=== PATIENT | male | born 1955 | race Caucasian/White ===

== ENCOUNTER → 2018-07-06 13:00 | Outpatient (CLI) | payer OTHER, SELFPAY | PROVIDERS: PCP Family Medicine | DX: Z23 Encounter for immunization (principal) | CPT/HCPCS: 90471; 90686 ==

== ENCOUNTER → 2019-01-03 12:13 | Outpatient (CLI) | payer OTHER, SELFPAY ==
[2019-01-03 12:51] LABS: Influenza A and B by PCR Rapid Negative (Negative)
== END ==
PROVIDERS: PCP Family Medicine; Visit Provider Physician Assistant
DX: R68.89 Other general symptoms and signs (principal)
CPT/HCPCS: 87400

== ENCOUNTER → 2019-08-02 10:52 | Outpatient (CLI) | payer OTHER, SELFPAY ==
[2019-08-02 12:11] LABS: Vitamin D 25 Hydroxy (D3) 24.3 ng/mL (30.0-100.0)
[2019-08-02 12:25] LABS: Prostate Specific Antigen Scrn 1.18 ng/mL (0.1-4.0)
== END ==
PROVIDERS: PCP Student in an Organized Health Care Education/Training Program; Visit Provider Student in an Organized Health Care Education/Training Program
DX: Z12.5 Encounter for screening for malignant neoplasm of prostate (principal); E55.9 Vitamin D deficiency, unspecified
CPT/HCPCS: 36415; 82306; G0103

== ENCOUNTER → 2019-08-02 13:42 | Outpatient (CLI) | payer OTHER, SELFPAY | PROVIDERS: PCP Student in an Organized Health Care Education/Training Program | DX: Z23 Encounter for immunization (principal) | CPT/HCPCS: 90471; 90686 ==

== ENCOUNTER 2019-09-02 07:24 | Day surgery (SDC) | payer OTHER, SELFPAY ==
--- NOTE | 2019-09-02 | PATH_ITS ---
[facility] Accession Number: [id number] . 01 Material submitted: . rectum - RECTAL POLYP @10 CM . 01 Clinical history: . SCREENING COLONOSCOPY . 02 Diagnosis: Rectum, Polyp at 10 cm, Biopsy: Tubular adenoma. MRV 09/05/2019 0951 Local . 02 Electronically signed: . Bambi Mendosa MD, Pathologist NPI- [id number] . 01 Gross description: . RECTAL POLYP @10 CM: Received in formalin are 2 fragment(s) of eng, soft tissue measuring 0.2 x 0.1 x 0.1 cm to 0.3 x 0.3 x 0.2 cm submitted entirely in 1 cassette(s) /[facility] [place] 09/02/2019 191 Local . 02 Pathologist provided ICD-10: D12.8 . 02 CPT . 085147 Performed at: 01 [facility] [address] [facility], [place], [place] [id number] MD Avi Chamorro MD Phone: [phone] Performed at: [facility] [address] [place], [place] [id number] MD Bambi Mendosa MD Phone: [phone]
[2019-09-02 07:46] VITALS: BP 130/80; PULSE 76; RESP 16; TEMP 36.7; O2SAT 98; BMI 23.6
[2019-09-02] MEDS: SODIUM CHLORIDE 0.9% 1,000 ML 200 ML IV (07:53)
[2019-09-02] MEDS: SODIUM CHLORIDE 0.9% 1,000 ML 125 ML IV ×2 (08:30→09:25)
--- NOTE | 2019-09-02 08:55 | PM.HP.1 ---
History of Present Illness History of Present Illness Date Patient Seen: 09/02/19 Time Patient Seen: 08:55 Chief complaint: 15089 SCREENING COLONOSCOPY Narrative: This is a 64-year-old man with history of a normal screening colonoscopy 10 years ago. He is here for his next follow-up screening. He denies any personal history of polyps, or melena, hematochezia, abdominal pain, or unexplained weight loss. He believes his mother who is now 100 may have had colon cancer at some point in her life that he is not sure of the details of that. He is otherwise healthy and denies any significant medical changes since his last primary care visit in February. Patient History Medical History Actinic keratosis (Chronic ~2011) Chicken pox (Resolved ~1959) Hyperlipidemia (Chronic ~2007) Skin cancer (Chronic ~2013) Surgical History Anesthesia (Resolved) History of tonsillectomy (~1964) Status post appendectomy (~1977) Family & Social History Family History Brother Age: 69 Heart disease Stroke Mother Age: 99 Cancer Heart disease Sister Age: 76 Heart disease Sister Age: 75 COPD (chronic obstructive pulmonary disease) Father Heart disease Stroke Social History: household members none Tobacco & Substance use: Smoking Status Never smoker Meds Home Medications and Allergies Home Medications Medication Instructions Recorded Confirmed Type ASPIRIN (Aspirin EC) 81 mg PO Q DAY #0 02/26/11 09/02/19 History atorvastatin 40 mg tablet 40 mg PO HS #90 tab 02/17/19 09/02/19 Rx sodium,potassium,mag sulfates 17.5 177 ml PO DAILY #354 ml 08/17/19 09/02/19 Rx gram-3.13 gram-1.6 gram oral soln Allergies Allergy/AdvReac Type Severity Reaction Status Date / Time Sulfa (Sulfonamide Allergy Unknown Verified 02/17/19 12:59 Antibiotics) [SULFA (SULFONAMIDE ANTIBIOTICS)] Review of Systems Review of Systems Narrative: Thirteen system review is negative other than as mentioned below and in HPI. Exam Vital Signs (past 8 hours): - 09/02/19 07:46 Temperature 98.1 F Pulse Rate 76 Respiratory Rate 16 Blood Pressure 130/80 Pulse Oximetry 98 Oxygen Delivery Method Room Air Narrative Exam Narrative: GENERAL: Well groomed and cooperative. Appears stated age. Answers questions promptly and appropriately. Vital signs noted. HENT: Normocephalic, atraumatic. Hearing intact. Oral mucosa is pink and moist. EYES: Conjunctiva pink, sclera white, no periorbital swelling. CARDIOVASCULAR: Regular rate. No pedal edema. RESPIRATORY: Normal respiratory rate, breathing comfortably on room air. GASTROINTESTINAL: Abdomen soft and non-distended GENITALURINARY: No flank tenderness. MUSCULOSKELETAL: Equal tone and mass bilaterally. SKIN: Warm, dry, soft, appropriate color for ethnicity. No other lesions, rashes, or wounds. NEURO: Alert and Oriented X 3. No gross sensory deficits, or cognitive issues. PSYCH: Appropriate affect and mood. Assessment & Plan Assessment and plan (1) At average risk for colon cancer: Current visit: Yes Status: Acute (2) Colon cancer screening: Current visit: Yes Status: Acute Assessment & Plan narrative: This is a 64-year-old man who is here for his screening colonoscopy. Risks and benefits of the procedure were discussed including risk of bleeding and perforation. The patient desires to proceed with his colonoscopy. Quality VTE Deep Vein Thrombosis/Pulmonary Embolism Present on Admission: No
--- NOTE | 2019-09-02 09:34 | PM.OP.ENDO ---
Operative Date/Time/Diagnoses Date of procedure: 09/02/19 Time of procedure: 09:34 Pre-op diagnosis: Average risk for colon cancer Post-op diagnosis: other (Colon polyp, diverticulosis, external hemorrhoids) Procedure & Clinicians Study performed: Colonoscopy, polypectomy with hot snare and cold forceps Same procedure as scheduled: Yes Indications: Average risk for colon cancer Surgeon: Magalis Pablo Procedure Notes SCOAP/Timeout: Performed Procedure in detail: The patient was brought to the room and placed in left lateral decubitus position with all bony prominences padded. A time-out was performed and then the patient was given procedural sedation starting with 5 mg of Versed and 150 mcg of fentanyl. Vitals were monitored throughout the procedure and remained stable. Once adequately sedated the procedure was begun. A rectal exam was performed revealing moderate non thrombosed external hemorrhoids, which appear to be tender, although the patient was under sedation. The colonoscope was then introduced to the rectum and advanced to the cecum in the usual fashion. []The cecum was identified by the appendiceal orifice, the mucosal try fold, and the ileocecal valve. The scope was then retracted while rotating side to side and examining each mucosal fold. [A few scattered diverticula were seen in the descending and sigmoid colon. No sign of diverticulitis. A moderately-sized 1 cm pedunculated polyp was found in the rectum about 10 cm from the anal verge. This was entirely removed with hot snare and forceps.] At the conclusion procedure retroflexion was performed and [small grade 1-2 internal hemorrhoids without stigmata of bleeding were seen]. The scope was then withdrawn from the rectum the procedure was concluded. The patient tolerated the procedure well was transferred to the PACU in stable condition. Scope withdrawal time: 9 Sedation minutes: 32 Findings: diverticulosis and polyp Specimen(s): other (1 cm polyp from the rectum) Complications: none Impression: Diverticulosis, external hemorrhoids, 1 polyp in the rectum Post-procedure Recommendations: Other recommendation (Next colonoscopy in 5-10 years depending on pathology results) Follow up: as needed Disposition: PACU
[2019-09-02] MEDS: fentaNYL 250 MCG/5 ML INJ IV (09:36)
[2019-09-02] MEDS: MIDAZOLAM 5 MG/5 ML VIAL IV (09:36)
[2019-09-02 09:37] VITALS: BP 109/77; PULSE 64; RESP 21; TEMP 36.2; O2SAT 98
[2019-09-02 09:41] VITALS: BP 105/75; PULSE 63; RESP 14; O2SAT 98
[2019-09-02 09:46] VITALS: BP 104/71; PULSE 57; RESP 14; O2SAT 98
[2019-09-02 09:57] VITALS: BP 100/67; PULSE 56; RESP 98; O2SAT 13
[2019-09-02 10:14] VITALS: BP 115/75; PULSE 61; RESP 16; TEMP 36.5; O2SAT 99
--- NOTE | 2019-09-02 10:15 | SUR.PHASEII ---
reviewed procedure and D/C instructions with pt. Christopher notified, pt independently dressing. Escorted to vehicle
== END 2019-09-02 10:20 | disposition home or self-care (01) ==
PROVIDERS: PCP Student in an Organized Health Care Education/Training Program; Visit Provider Surgery
PROC: 0DJD8ZZ Inspection of Lower Intestinal Tract, Via Natural or Artificial Opening Endoscopic (ICD-10-PCS; CPT 45378; principal; 2019-09-02 08:45)
DX: Z12.11 Encounter for screening for malignant neoplasm of colon (principal); E78.5 Hyperlipidemia, unspecified; K57.30 Diverticulosis of large intestine without perforation or abscess without bleeding; K64.4 Residual hemorrhoidal skin tags; D12.8 Benign neoplasm of rectum
CPT/HCPCS: 45385; 45380; 99152; 99153; J2250; J3010

== ENCOUNTER → 2020-04-25 08:48 | Outpatient (CLI) | payer OTHER, SELFPAY ==
[2020-04-26 08:53] LABS: COVID19 Sendout Not Detected (Not Detect)
== END ==
PROVIDERS: PCP Student in an Organized Health Care Education/Training Program; Visit Provider Physician Assistant
DX: Z03.818 Encounter for observation for suspected exposure to other biological agents ruled out (principal)
CPT/HCPCS: 87635

== ENCOUNTER → 2020-06-19 09:42 | Outpatient (CLI) | payer OTHER, SELFPAY ==
--- NOTE | 2020-06-19 09:44 | DI.US.S_ITS ---
PROCEDURE: US ABD AORTA ANEURYSM SCREEN INDICATIONS: PULSATILE MASS TECHNIQUE: Real time scanning was performed of the aorta and iliac arteries, with image documentation. COMPARISON: None. FINDINGS: Aorta: Proximal aortic diameter measures 2.6 cm. Mid-aorta measures 2.0 cm. Distal aortic diameter is 2.0 cm. Iliac arteries: Right common iliac artery measures 1.3 cm. Left common iliac artery measures 1.3 cm. Incidental finding of simple left hepatic lobe cysts, largest measuring 3.5 cm. IMPRESSION: 1. Mild ectasia of the proximal aorta. 5 year follow-up ultrasound recommended. Dictated by: Roger RAMIREZ Interpreted: Viola Herrera MD on 06/19/2020 at 10:20 Approved by: Viola Herrera M.D. on 06/19/2020 at 15:00
== END ==
PROVIDERS: PCP Student in an Organized Health Care Education/Training Program; Referring Provider Student in an Organized Health Care Education/Training Program; Visit Provider Student in an Organized Health Care Education/Training Program
DX: I77.810 Thoracic aortic ectasia (principal); K76.89 Other specified diseases of liver; R19.00 Intra-abdominal and pelvic swelling, mass and lump, unspecified site
CPT/HCPCS: 76706

== ENCOUNTER → 2020-08-02 01:00 | Outpatient (CLI) | payer OTHER, SELFPAY | PROVIDERS: PCP Student in an Organized Health Care Education/Training Program; Referring Provider Internal Medicine; Visit Provider Internal Medicine | DX: Z23 Encounter for immunization (principal) | CPT/HCPCS: 90471; 90686 ==

== ENCOUNTER → 2020-10-24 16:46 | Outpatient (CLI) | payer OTHER, SELFPAY ==
[2020-10-24] MEDS: COVID-19 VACC(MODERNA-1)/PF 100 MCG/0.5 ML VIAL IM (17:06)
== END ==
PROVIDERS: PCP Student in an Organized Health Care Education/Training Program; Visit Provider Internal Medicine
DX: Z23 Encounter for immunization (principal)
CPT/HCPCS: 0011A; 91301

== ENCOUNTER → 2020-11-21 08:24 | Outpatient (CLI) | payer OTHER, SELFPAY ==
[2020-11-21] MEDS: COVID-19 VACC #2, MRNA(MOD) 100 MCG/0.5 ML VIAL IM (08:28)
== END ==
PROVIDERS: PCP Student in an Organized Health Care Education/Training Program; Visit Provider Internal Medicine
DX: Z23 Encounter for immunization (principal)
CPT/HCPCS: 0012A; 91301

== ENCOUNTER → 2021-03-15 07:16 | Outpatient (CLI) | payer OTHER, SELFPAY ==
[2021-03-15 08:37] LABS: Prostate Specific Antigen Scrn 0.916 ng/mL (0.1-4.0)
== END ==
PROVIDERS: PCP Student in an Organized Health Care Education/Training Program; Referring Provider Student in an Organized Health Care Education/Training Program; Visit Provider Student in an Organized Health Care Education/Training Program
DX: Z12.5 Encounter for screening for malignant neoplasm of prostate (principal)
CPT/HCPCS: 36415; G0103

== ENCOUNTER → 2021-08-01 | Outpatient (CLI) | payer OTHER, SELFPAY | PROVIDERS: PCP Student in an Organized Health Care Education/Training Program; Referring Provider Internal Medicine; Visit Provider Internal Medicine | DX: Z23 Encounter for immunization (principal) | CPT/HCPCS: 90471; 90686 ==

== ENCOUNTER → 2021-08-30 13:11 | Outpatient (CLI) | payer OTHER, SELFPAY ==
[2021-08-30] MEDS: COVID-19 VACC #3, MRNA(MOD) 50 MCG/0.25 ML VIAL IM (13:17)
== END ==
PROVIDERS: PCP Student in an Organized Health Care Education/Training Program; Visit Provider Internal Medicine
DX: Z23 Encounter for immunization (principal)
CPT/HCPCS: 0013A; 91301

== ENCOUNTER → 2022-05-12 07:42 | Outpatient (CLI) | payer OTHER, SELFPAY ==
[2022-05-12 08:24] LABS: Cholesterol 157 mg/dL (140-199); HDL Cholesterol 54 mg/dL (40-60); LDL Cholesterol Calculated 97 mg/dL (<100); Triglycerides 32 mg/dL (35-150)
[2022-05-12 08:31] LABS: Vitamin D 25 Hydroxy (D3) 46.5 ng/mL (30.0-100.0)
[2022-05-12 08:55] LABS: Prostate Specific Antigen Scrn 1.09 ng/mL (0.1-4.0)
== END ==
PROVIDERS: PCP Student in an Organized Health Care Education/Training Program; Referring Provider Student in an Organized Health Care Education/Training Program; Visit Provider Student in an Organized Health Care Education/Training Program
DX: Z12.5 Encounter for screening for malignant neoplasm of prostate (principal); E78.2 Mixed hyperlipidemia; E55.9 Vitamin D deficiency, unspecified
CPT/HCPCS: 36415; 80061; 82306; G0103

== ENCOUNTER → 2022-08-08 16:47 | Outpatient (CLI) | payer OTHER, SELFPAY | PROVIDERS: Family Provider Student in an Organized Health Care Education/Training Program; PCP Student in an Organized Health Care Education/Training Program; Referring Provider Internal Medicine; Visit Provider Internal Medicine | DX: Z23 Encounter for immunization (principal) | CPT/HCPCS: 90471; 90686 ==

== ENCOUNTER 2022-11-12 16:00 | Outpatient (RCR) | payer OTHER, SELFPAY ==
--- NOTE | 2022-08-27 13:40 | PT.OIE ---
Current Diagnoses Abnormal posture (08/27/22) Weakness (08/27/22) Strain of unspecified muscles, fascia and tendons at forearm level, right arm, initial encounter (08/27/22) Past Medical History (Last Updated 04/19/22 @ 15:12 by Ubaldo Cuevas MD) Actinic keratosis (~2011) Basal cell carcinoma (BCC) of face (07/20/15) Chicken pox (~1960) Hyperlipidemia (~2007) Past Surgical History (Last Reviewed 09/02/19 @ 08:56 by Magalis Pablo MD) Anesthesia History of tonsillectomy (~1964) Status post appendectomy (~1977) Visit Care Team Role Provider Type Ubaldo Cuevas MD Attending Provider Physician Family Provider Primary Care Provider Referring Provider Specialty: Internal Medicine Address: [address] [place] [address], [address], [facility] Email: [email or web address] Physical Therapy Initial Evaluation PT-OP-A Visit Information Start: 08/26/22 15:05 Freq: Status: Active Protocol: Document 08/27/22 11:18 [facility] (Rec: 08/27/22 12:10 [facility] [id number]) Out-Patient Physical Therapy Visit Information Visit Information Visit Type Initial Evaluation Visit Start Time 11:17 Visit Stop Time 12:06 Total Visit Minutes 49 Visit Number [address] 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 He could feel it during, but powered through it. This happened in march but it hasn't gotten better. He still works out still but just feels it. He moved some furniture a couplew pit river ago and he isn't sure if it was weak or he held back d/t the pain. Pt is R hand dominant. Denies neck or shoulder pain. For work, he on the computer,b ut he doesn't notice that inc it. Golfing didn't bother it. Prior Treatments and Tests none Treatment Goals Patient/Caregiver Goals prevent further damage; be able to pick remover heavy things like his vacuum PT-OP-C Subjective Start: 08/26/22 15:05 Freq: Status: Active Protocol: Document 08/27/22 11:18 [facility] (Rec: 08/27/22 12:10 [facility] [id number]) Patient Questionnaires Quick Dash- Upper Extremity Quick Dash UE Score 2.27 OP-PT Pain Assessment Location R forearm Pain Location Details lat forearm and occ up into distal brachium Intensity 4 Scale Used Numeric (0 - 10) Description With Movement Description- Other sometimes aches for min after doing things; sharp whend oing things Frequency Intermittent Pain Aggravating Factors Lifting Other Pain Aggravating Factors grabbing his leg to stretch Other Pain Alleviating Factors relax PT-OP-F Manual Assessment Start: 08/26/22 15:05 Freq: Status: Active Protocol: Document 08/27/22 11:18 [facility] (Rec: 08/27/22 12:10 [facility] [id number]) Manual Assessments Soft Tissue Assessment Soft Tissue Mobility Assessment tightness in extensor tendsons and biceps PT-OP-J Posture/Palpation/Skin Start: 08/26/22 15:05 Freq: Status: Active Protocol: Document 08/27/22 11:18 [facility] (Rec: 08/27/22 12:10 [facility] [id number]) Posture Evaluation Beba Postural Classification System Elbow Flexion Test 3 PT-OP-K Range of Motion Start: 08/26/22 15:05 Freq: Status: Active Protocol: Document 08/27/22 11:18 [facility] (Rec: 08/27/22 12:10 [facility] [id number]) Elbow/Forearm Range of Motion Elbow/Forearm Right Active Elbow Flexion (degrees) 149 Elbow Extension (degrees) 8 Pronation (degrees) 63 Supination (degrees) 84 Comments pain w/flex Left Active Elbow Flexion (degrees) 150 Elbow Extension (degrees) 0 Pronation (degrees) 69 Supination (degrees) 85 Wrist Goniometric Range of Motion Wrist Right Flexion Active (degrees) 80 Extension Active (degrees) 58 Ulnar Deviation Active (degrees) 40 Radial Deviation Active (degrees) 20 Left Flexion Active (degrees) 81 Extension Active (degrees) 45 Ulnar Deviation Passive (degrees) 36 Radial Deviation Active (degrees) 28 PT-OP-L Special Tests Start: 08/26/22 15:05 Freq: Status: Active Protocol: Document 08/27/22 11:18 [facility] (Rec: 08/27/22 12:10 [facility] [id number]) Special Tests Elbow Special Tests Mill's test Test Results neg Neural Special Tests- Upper Body Radial Nerve Tension Test Results neg Ulnar Nerve Tension Test Results neg Median Nerve Tension Test Results neg PT-OP-M Strength Start: 08/26/22 15:05 Freq: Status: Active Protocol: Document 08/27/22 11:18 [facility] (Rec: 08/27/22 12:10 [facility] [id number]) Shoulder Strength Shoulder Manual Muscle Testing Right Flexion 5 Normal Extension 5 Normal Abduction (C5) 5 Normal External Rotation 5 Normal Internal Rotation 5 Normal Comments pain w/IR Elbow/Forearm Strength Elbow and Forearm Manual Muscle Testing Right Flexion (C6) 4+ Good+ Extension (C7) 5 Normal Pronation 5 Normal Supination 4- Good- Comments flex in pronation: 4-/5 pain; pain w/supination Left Flexion (C6) 5 Normal Extension (C7) 5 Normal Pronation 5 Normal Supination 5 Normal Comments flex in pronation:5 Wrist Strength Wrist Manual Muscle Testing Right Flexion (C7) 4 Good Extension (C6) 4+ Good+ Ulnar Deviation 5 Normal Radial Deviation 4 Good Comments radial deviation & flex strain Left Flexion (C7) 5 Normal Extension (C6) 5 Normal Ulnar Deviation 5 Normal Radial Deviation 5 Normal Hand Break Off Worker/Pinch Strength Hand Dominance Hand Dominance Right Hand Strength Right Comments 85, 88, 87 lb Left Comments 98, 100, 101 lb PT-OP-Q Treatments Start: 08/26/22 15:05 Freq: Status: Active Protocol: Document 08/27/22 11:18 [facility] (Rec: 08/27/22 13:40 [facility] [id number]) Therapeutic Exercises Sitting Exercises radial deviation Side right Equipment Used 2# Reps/Minutes 10 wrist flex Side right Equipment Used 2# Reps/Minutes 10 stretches Sitting Exercise Name 1. wrist flexor 2. wrist extensor Side right Reps/Minutes 30 sec ea Standing Exercises brachialis curl Side right Equipment Used 5# Reps/Minutes 10 Manual Therapy Treatment Soft Tissue Mobilization biceps Body Location R distal Mobilization Type Rolling Intensity/Depth Moderate Body Position Sitting extensors Body Location R wrist Mobilization Type Cross-Friction,Rolling, Strumming Intensity/Depth Moderate Body Position Sitting PT-OP-T Assessment and Plan Start: 08/26/22 15:05 Freq: Status: Active Protocol: Document 08/27/22 11:18 [facility] (Rec: 08/27/22 12:10 [facility] [id number]) Physical Therapy Assessment Rehab Potential Rehabilitation Potential Good Evaluation Complexity Number of Personal Factors/Comorbidities 1-2 Number of Body Systems Impaired 4 or More Clinical Presentation at Evaluation Stable Impairments Impairments Activity Tolerance,Functional Activities,Functional Mobility ,Pain,Posture,ROM,Soft Tissue Mobility,Strength Goals licensed sales producer strength Polishing Machine Tender Goal (LTG) Pt will have equal licensed sales producer strength in RUE when compared to LUE. LTG Duration 11/19 activities Polishing Machine Tender Goal (LTG) Pt will be able to pick remover heavy objects like his vacuum w/RUE w/o inc pain noted. LTG Duration 11/19/22 strength Short Term Goal (STG) Pt will be indep w/HEP STG Duration 10/07/22 Intermediate Goal (LTG) Ptw ill score 4/5 on EFT and 5 /5 on all MMT of elbow and wrist to show improved UE strength to improve ability to lift and use UE. LTG Duration 11/19 Assessment Summary Assessment Pt presents with L elbow/ forearm pain that has been ongoing since weed-eating in March that appears to be lateral epicondylitis based on where he is tender and some lack of pronation and ext at the elbow along w/weakness in licensed sales producer and pain w/radial deviation. He does a general strengthing program that does not inc his pain and some exercises were added today to focus on his current weakness. He had no pain with exercises and would benefit from PT tow rok on regaining ROM and strength and dec pain. Physical Therapy Plan Frequency and Duration Frequency of Treatment 1-2x/wk Duration of treatment (weeks) 12 Plan of Care Start Date 08/27/22 Plan of Care End Date 11/19/22 Therapeutic Interventions Therapeutic Interventions Home Exercise Program,Joint Mobilizations,Manual Therapy, Neuromuscular Re-education, Orthotic/Prosthetic Management ,Patient/Caregiver Education, Self-Care/Home Management,Soft Tissue Mobilization,Taping, Therapeutic Activities, Therapeutic Exercises Modalities Cold Pack/Ice Massage,Electric Stimulation,Hot Packs, Infrared Therapy,Iontophoresis ,Ultrasound Next Visit Focus/Plan Next Note Type Treatment Note Next Visit Plan laser, ionto (if POC signed back), review exercsies
--- NOTE | 2022-08-27 13:40 | PT.OPPOC ---
Physical, Occupational & Speech Therapy At [facility] Current Diagnoses Abnormal posture (08/27/22) Weakness (08/27/22) Strain of unspecified muscles, fascia and tendons at forearm level, right arm, initial encounter (08/27/22) Visit Care Team Role Provider Type Ubaldo Cuevas MD Attending Provider Physician Family Provider Primary Care Provider Referring Provider Specialty: Internal Medicine Address: [address] [place] [address], [facility] [address], [address] Email: [email or web address] Plan Of Care PT-OP-T Assessment and Plan Start: 08/26/22 15:05 Freq: Status: Active Protocol: Document 08/27/22 11:18 [facility] (Rec: 08/27/22 12:10 [facility] [id number]) Physical Therapy Assessment Rehab Potential Rehabilitation Potential Good Evaluation Complexity Number of Personal Factors/Comorbidities 1-2 Number of Body Systems Impaired 4 or More Clinical Presentation at Evaluation Stable Impairments Impairments Activity Tolerance,Functional Activities,Functional Mobility ,Pain,Posture,ROM,Soft Tissue Mobility,Strength Goals acupuncturist strength Pump And Still Operator Goal (LTG) Pt will have equal acupuncturist strength in RUE when compared to LUE. LTG Duration 11/19 activities Pump And Still Operator Goal (LTG) Pt will be able to pick up driver heavy objects like his vacuum w/RUE w/o inc pain noted. LTG Duration 11/19/22 strength Short Term Goal (STG) Pt will be indep w/HEP STG Duration 10/07/22 Half-Way Goal (LTG) Ptw ill score 4/5 on EFT and 5 /5 on all MMT of elbow and wrist to show improved UE strength to improve ability to lift and use UE. LTG Duration 11/19 Assessment Summary Assessment Pt presents with L elbow/ forearm pain that has been ongoing since weed-eating in March that appears to be lateral epicondylitis based on where he is tender and some lack of pronation and ext at the elbow along w/weakness in acupuncturist and pain w/radial deviation. He does a general strengthing program that does not inc his pain and some exercises were added today to focus on his current weakness. He had no pain with exercises and would benefit from PT tow rok on regaining ROM and strength and dec pain. Physical Therapy Plan Frequency and Duration Frequency of Treatment 1-2x/wk Duration of treatment (weeks) 12 Plan of Care Start Date 08/27/22 Plan of Care End Date 11/19/22 Therapeutic Interventions Therapeutic Interventions Home Exercise Program,Joint Mobilizations,Manual Therapy, Neuromuscular Re-education, Orthotic/Prosthetic Management ,Patient/Caregiver Education, Self-Care/Home Management,Soft Tissue Mobilization,Taping, Therapeutic Activities, Therapeutic Exercises Modalities Cold Pack/Ice Massage,Electric Stimulation,Hot Packs, Infrared Therapy,Iontophoresis ,Ultrasound Next Visit Focus/Plan Next Note Type Treatment Note Next Visit Plan laser, ionto (if POC signed back), review exercsies Plan of Care Dates Plan of Care Start Date 08/27/22 Plan of Care End Date 11/19/22 Electronically Signed by: Beth Agustin, PT 08/27/22 9020 If you are in agreement with this Plan of Care, please return a signed and dated copy. I have reviewed this Plan of Care and certify that the skilled therapy services above are required to meet the patient?s needs. Physician Signature Date Printed Name and Credentials Clinical Instructor Signature Printed Name and Credentials
--- NOTE | 2022-09-04 17:01 | PT.OTN ---
Current Diagnoses Abnormal posture (09/04/22) Weakness (09/04/22) Strain of unspecified muscles, fascia and tendons at forearm level, right arm, initial encounter (09/04/22) Physical Therapy Treatment Note PT-OP-A Visit Information Start: 08/26/22 15:05 Freq: Status: Active Protocol: Document 09/04/22 15:31 [facility] (Rec: 09/04/22 17:01 [facility] [id number]) Out-Patient Physical Therapy Visit Information Visit Information Visit Type Treatment Note Visit Start Time 16:06 Visit Stop Time 16:48 Total Visit Minutes 42 Visit Number 2 Number of BRIDGE OPERATOR Visits 0 PT-OP-B Current Condition Start: 08/26/22 15:05 Freq: Status: Active Protocol: Document 08/27/22 11:18 [facility] (Rec: 08/27/22 12:10 [facility] [id number]) Current Condition History of Current Condition Onset Date March Current Complaints R elbow to forearm and into brachium History of Current Condition Pt was weed eating with his new battery operated one that doesn't have a strap and he powered through it and did about 3 hours of work. He could feel it during, but powered through it. This happened in march but it hasn't gotten better. He still works out still but just feels it. He moved some furniture a couplew [place] ago and he isn't sure if it was weak or he held back d/t the pain. Pt is R hand dominant. Denies neck or shoulder pain. For work, he on the computer,b ut he doesn't notice that inc it. Golfing didn't bother it. Prior Treatments and Tests none Treatment Goals Patient/Caregiver Goals prevent further damage; be able to roller picker heavy things like his vacuum PT-OP-C Subjective Start: 08/26/22 15:05 Freq: Status: Active Protocol: Document 09/04/22 15:31 [facility] (Rec: 09/04/22 17:01 [facility] [id number]) OP-PT Subjective Patient Comments Patient Comments Pt reports compliance w/ exercises. He has been using 5 Lbs PT-OP-F Manual Assessment Start: 08/26/22 15:05 Freq: Status: Active Protocol: Document 08/27/22 11:18 [facility] (Rec: 08/27/22 12:10 [facility] [id number]) Manual Assessments Soft Tissue Assessment Soft Tissue Mobility Assessment tightness in extensor tendsons and biceps PT-OP-J Posture/Palpation/Skin Start: 08/26/22 15:05 Freq: Status: Active Protocol: Document 08/27/22 11:18 [facility] (Rec: 08/27/22 12:10 [facility] [id number]) Posture Evaluation [facility] Postural Classification System Elbow Flexion Test 3 PT-OP-K Range of Motion Start: 08/26/22 15:05 Freq: Status: Active Protocol: Document 08/27/22 11:18 [facility] (Rec: 08/27/22 12:10 [facility] [id number]) Elbow/Forearm Range of Motion Elbow/Forearm Right Active Elbow Flexion (degrees) 149 Elbow Extension (degrees) 8 Pronation (degrees) 63 Supination (degrees) 84 Comments pain w/flex Left Active Elbow Flexion (degrees) 150 Elbow Extension (degrees) 0 Pronation (degrees) 69 Supination (degrees) 85 Wrist Goniometric Range of Motion Wrist Right Flexion Active (degrees) 80 Extension Active (degrees) 58 Ulnar Deviation Active (degrees) 40 Radial Deviation Active (degrees) 20 Left Flexion Active (degrees) 81 Extension Active (degrees) 45 Ulnar Deviation Passive (degrees) 36 Radial Deviation Active (degrees) 28 PT-OP-L Special Tests Start: 08/26/22 15:05 Freq: Status: Active Protocol: Document 08/27/22 11:18 [facility] (Rec: 08/27/22 12:10 [facility] [id number]) Special Tests Elbow Special Tests Mill's test Test Results neg Neural Special Tests- Upper Body Radial Nerve Tension Test Results neg Ulnar Nerve Tension Test Results neg Median Nerve Tension Test Results neg PT-OP-M Strength Start: 08/26/22 15:05 Freq: Status: Active Protocol: Document 08/27/22 11:18 [facility] (Rec: 08/27/22 12:10 [facility] [id number]) Shoulder Strength Shoulder Manual Muscle Testing Right Flexion 5 Normal Extension 5 Normal Abduction (C5) 5 Normal External Rotation 5 Normal Internal Rotation 5 Normal Comments pain w/IR Elbow/Forearm Strength Elbow and Forearm Manual Muscle Testing Right Flexion (C6) 4+ Good+ Extension (C7) 5 Normal Pronation 5 Normal Supination 4- Good- Comments flex in pronation: 4-/5 pain; pain w/supination Left Flexion (C6) 5 Normal Extension (C7) 5 Normal Pronation 5 Normal Supination 5 Normal Comments flex in pronation:5 Wrist Strength Wrist Manual Muscle Testing Right Flexion (C7) 4 Good Extension (C6) 4+ Good+ Ulnar Deviation 5 Normal Radial Deviation 4 Good Comments radial deviation & flex strain Left Flexion (C7) 5 Normal Extension (C6) 5 Normal Ulnar Deviation 5 Normal Radial Deviation 5 Normal Hand Head Butler/Pinch Strength Hand Dominance Hand Dominance Right Hand Strength Right Comments 85, 88, 87 lb Left Comments 98, 100, 101 lb PT-OP-Q Treatments Start: 08/26/22 15:05 Freq: Status: Active Protocol: Document 09/04/22 15:31 [facility] (Rec: 09/04/22 17:01 [facility] [id number]) Therapeutic Exercises Sitting Exercises wrist ext Side right Equipment Used 5# Reps/Minutes 10 radial deviation Side right Equipment Used 5# Reps/Minutes 10 wrist flex Side right Equipment Used 5# Reps/Minutes 10 stretches Sitting Exercise Name 1. wrist flexor 2. wrist extensor Side right Reps/Minutes 30 sec ea Standing Exercises brachialis curl Side right Equipment Used 10# Reps/Minutes 10 Manual Therapy Treatment Soft Tissue Mobilization biceps Body Location R distal Mobilization Type Rolling Intensity/Depth Moderate Body Position Sitting extensors Body Location R wrist extenors & pronator teres & into carpel renaculum Mobilization Type Cross-Friction,Rolling, Strumming Intensity/Depth Moderate Body Position Sitting Joint Mobilizations humerus Joint PA FM ulna Comments 1. distraction FM 2. AP FM (elbow ext & flex) 3. on axis FM radius Comments AP FM in flex & ext PT-OP-R Modalities Start: 08/26/22 15:05 Freq: Status: Active Protocol: Document 09/04/22 15:31 [facility] (Rec: 09/04/22 17:01 [facility] [id number]) Infrared Treatment Treatment lat epicondyle Duration (Minutes) 1 Body Position Sitting Program or Protocal chornoic tendon mod PT-OP-T Assessment and Plan Start: 08/26/22 15:05 Freq: Status: Active Protocol: Document 09/04/22 15:31 [facility] (Rec: 09/04/22 17:01 [facility] [id number]) Physical Therapy Assessment Goals mold cleaner strength Predator Control Trapper Goal (LTG) Pt will have equal mold cleaner strength in RUE when compared to LUE. LTG Duration 2/1 activities Predator Control Trapper Goal (LTG) Pt will be able to roller picker heavy objects like his vacuum w/RUE w/o inc pain noted. LTG Duration 11/19/22 strength Short Term Goal (STG) Pt will be indep w/HEP STG Duration 10/07/22 Predator Control Trapper Goal (LTG) Ptw ill score 4/5 on EFT and 5 /5 on all MMT of elbow and wrist to show improved UE strength to improve ability to lift and use UE. LTG Duration 11/19 Assessment Summary Assessment Pt did well with exercises with the inc wt without inc pain. Did require min cues for keeping forearm flat during wrist exercises. Improved pronation and supination ROM after manual treatment Physical Therapy Plan Frequency and Duration Frequency of Treatment 1-2x/wk Duration of treatment (weeks) 12 Plan of Care Start Date 08/27/22 Plan of Care End Date 11/19/22 Next Visit Focus/Plan Next Note Type Treatment Note Next Visit Plan laser, STM and jt mobs to elbow and wrist, ionto, taping to elbow
--- NOTE | 2022-09-09 16:05 | PT.OTN ---
Current Diagnoses Abnormal posture (09/09/22) Weakness (09/09/22) Strain of unspecified muscles, fascia and tendons at forearm level, right arm, initial encounter (09/09/22) Physical Therapy Treatment Note PT-OP-A Visit Information Start: 08/26/22 15:05 Freq: Status: Active Protocol: Document 09/09/22 14:44 [facility] (Rec: 09/09/22 16:05 [facility] [id number]) Out-Patient Physical Therapy Visit Information Visit Information Visit Type Treatment Note Visit Start Time 15:18 Visit Stop Time 16:00 Total Visit Minutes 42 Visit Number 3 Number of COREMAKER BENCH Visits 0 PT-OP-B Current Condition Start: 08/26/22 15:05 Freq: Status: Active Protocol: Document 08/27/22 11:18 [facility] (Rec: 08/27/22 12:10 [facility] [id number]) Current Condition History of Current Condition Onset Date March Current Complaints R elbow to forearm and into brachium History of Current Condition Pt was weed eating with his new battery operated one that doesn't have a strap and he powered through it and did about 3 hours of work. He could feel it during, but powered through it. This happened in march but it hasn't gotten better. He still works out still but just feels it. He moved some furniture a couplew redding ago and he isn't sure if it was weak or he held back d/t the pain. Pt is R hand dominant. Denies neck or shoulder pain. For work, he on the computer,b ut he doesn't notice that inc it. Golfing didn't bother it. Prior Treatments and Tests none Treatment Goals Patient/Caregiver Goals prevent further damage; be able to sweet pickle maker heavy things like his vacuum PT-OP-C Subjective Start: 08/26/22 15:05 Freq: Status: Active Protocol: Document 09/09/22 14:44 [facility] (Rec: 09/09/22 16:05 [facility] [id number]) OP-PT Subjective Patient Comments Patient Comments P reports arm feeling fine PT-OP-F Manual Assessment Start: 08/26/22 15:05 Freq: Status: Active Protocol: Document 08/27/22 11:18 [facility] (Rec: 08/27/22 12:10 [facility] [id number]) Manual Assessments Soft Tissue Assessment Soft Tissue Mobility Assessment tightness in extensor tendsons and biceps PT-OP-J Posture/Palpation/Skin Start: 08/26/22 15:05 Freq: Status: Active Protocol: Document 08/27/22 11:18 [facility] (Rec: 08/27/22 12:10 [facility] [id number]) Posture Evaluation [facility] Postural Classification System Elbow Flexion Test 3 PT-OP-K Range of Motion Start: 08/26/22 15:05 Freq: Status: Active Protocol: Document 08/27/22 11:18 [facility] (Rec: 08/27/22 12:10 [facility] [id number]) Elbow/Forearm Range of Motion Elbow/Forearm Right Active Elbow Flexion (degrees) 149 Elbow Extension (degrees) 8 Pronation (degrees) 63 Supination (degrees) 84 Comments pain w/flex Left Active Elbow Flexion (degrees) 150 Elbow Extension (degrees) 0 Pronation (degrees) 69 Supination (degrees) 85 Wrist Goniometric Range of Motion Wrist Right Flexion Active (degrees) 80 Extension Active (degrees) 58 Ulnar Deviation Active (degrees) 40 Radial Deviation Active (degrees) 20 Left Flexion Active (degrees) 81 Extension Active (degrees) 45 Ulnar Deviation Passive (degrees) 36 Radial Deviation Active (degrees) 28 PT-OP-L Special Tests Start: 08/26/22 15:05 Freq: Status: Active Protocol: Document 08/27/22 11:18 [facility] (Rec: 08/27/22 12:10 [facility] [id number]) Special Tests Elbow Special Tests Mill's test Test Results neg Neural Special Tests- Upper Body Radial Nerve Tension Test Results neg Ulnar Nerve Tension Test Results neg Median Nerve Tension Test Results neg PT-OP-M Strength Start: 08/26/22 15:05 Freq: Status: Active Protocol: Document 08/27/22 11:18 [facility] (Rec: 08/27/22 12:10 [facility] [id number]) Shoulder Strength Shoulder Manual Muscle Testing Right Flexion 5 Normal Extension 5 Normal Abduction (C5) 5 Normal External Rotation 5 Normal Internal Rotation 5 Normal Comments pain w/IR Elbow/Forearm Strength Elbow and Forearm Manual Muscle Testing Right Flexion (C6) 4+ Good+ Extension (C7) 5 Normal Pronation 5 Normal Supination 4- Good- Comments flex in pronation: 4-/5 pain; pain w/supination Left Flexion (C6) 5 Normal Extension (C7) 5 Normal Pronation 5 Normal Supination 5 Normal Comments flex in pronation:5 Wrist Strength Wrist Manual Muscle Testing Right Flexion (C7) 4 Good Extension (C6) 4+ Good+ Ulnar Deviation 5 Normal Radial Deviation 4 Good Comments radial deviation & flex strain Left Flexion (C7) 5 Normal Extension (C6) 5 Normal Ulnar Deviation 5 Normal Radial Deviation 5 Normal Hand Hand Launderer/Pinch Strength Hand Dominance Hand Dominance Right Hand Strength Right Comments 85, 88, 87 lb Left Comments 98, 100, 101 lb PT-OP-Q Treatments Start: 08/26/22 15:05 Freq: Status: Active Protocol: Document 09/09/22 14:44 [facility] (Rec: 09/09/22 16:05 [facility] [id number]) Manual Therapy Treatment Soft Tissue Mobilization biceps Body Location R distal Mobilization Type Rolling Intensity/Depth Moderate Body Position Sitting extensors Body Location R wrist extenors & pronator teres Mobilization Type Cross-Friction,Rolling, Strumming Intensity/Depth Moderate Body Position Sitting Joint Mobilizations carpals Joint PA FM radius Comments AP & PA FM in flex & ext Taping KT Body Location Y strip from base of 2-3 to extensor tendon group Treatment Focus dec pain Type of Tape KT PT-OP-R Modalities Start: 08/26/22 15:05 Freq: Status: Active Protocol: Document 09/09/22 14:44 [facility] (Rec[facility]/09/22 [id number] Infrared Treatment Treatment lat epicondyle Duration (Minutes) 1 Body Position Sitting Program or Protocal chornoic tendon mod PT-OP-T Assessment and Plan Start: 08/26/22 15:05 Freq: Status: Active Protocol: Document 09/09/22 14:44 [facility] (Rec: 09/09/22 16:05 [facility] [id number]) Physical Therapy Assessment Goals motorcycle police officer strength Customer Liaison Goal (LTG) Pt will have equal motorcycle police officer strength in RUE when compared to LUE. LTG Duration 11/19 activities Customer Liaison Goal (LTG) Pt will be able to sweet pickle maker heavy objects like his vacuum w/RUE w/o inc pain noted. LTG Duration 11/19/22 strength Short Term Goal (STG) Pt will be indep w/HEP STG Duration 10/07/22 Customer Liaison Goal (LTG) Ptw ill score 4/5 on EFT and 5 /5 on all MMT of elbow and wrist to show improved UE strength to improve ability to lift and use UE. LTG Duration 11/19 Assessment Summary Assessment Pt had improved ROM of pronation and supination in both flex and ext w/manual treatment . Physical Therapy Plan Frequency and Duration Frequency of Treatment 1-2x/wk Duration of treatment (weeks) 12 Plan of Care Start Date 08/27/22 Plan of Care End Date 11/19/22 Next Visit Focus/Plan Next Note Type Treatment Note Next Visit Plan laser, STM and jt mobs to elbow and wrist, ionto, taping to elbow
--- NOTE | 2022-09-16 14:57 | PT.OTN ---
Current Diagnoses Abnormal posture (09/16/22) Weakness (09/16/22) Strain of unspecified muscles, fascia and tendons at forearm level, right arm, initial encounter (09/16/22) Physical Therapy Treatment Note PT-OP-A Visit Information Start: 08/26/22 15:05 Freq: Status: Active Protocol: Document 09/16/22 13:34 [facility] (Rec: 09/16/22 14:56 [facility] [id number]) Out-Patient Physical Therapy Visit Information Visit Information Visit Type Treatment Note Visit Start Time 13:48 Visit Stop Time 14:28 Total Visit Minutes 40 Visit Number 4 Number of ETL PROGRAMMER Visits 0 PT-OP-B Current Condition Start: 08/26/22 15:05 Freq: Status: Active Protocol: Document 08/27/22 11:18 [facility] (Rec: 08/27/22 12:10 [facility] [id number]) Current Condition History of Current Condition Onset Date March Current Complaints R elbow to forearm and into brachium History of Current Condition Pt was weed eating with his new battery operated one that doesn't have a strap and he powered through it and did about 3 hours of work. He could feel it during, but powered through it. This happened in march but it hasn't gotten better. He still works out still but just feels it. He moved some furniture a couplew minto ago and he isn't sure if it was weak or he held back d/t the pain. Pt is R hand dominant. Denies neck or shoulder pain. For work, he on the computer,b ut he doesn't notice that inc it. Golfing didn't bother it. Prior Treatments and Tests none Treatment Goals Patient/Caregiver Goals prevent further damage; be able to chart picker heavy things like his vacuum PT-OP-C Subjective Start: 08/26/22 15:05 Freq: Status: Active Protocol: Document 09/16/22 13:34 [facility] (Rec: 09/16/22 14:56 [facility] [id number]) OP-PT Subjective Patient Comments Patient Comments pt reports he thinks he has more range PT-OP-F Manual Assessment Start: 08/26/22 15:05 Freq: Status: Active Protocol: Document 08/27/22 11:18 [facility] (Rec: 08/27/22 12:10 [facility] [id number]) Manual Assessments Soft Tissue Assessment Soft Tissue Mobility Assessment tightness in extensor tendsons and biceps PT-OP-J Posture/Palpation/Skin Start: 08/26/22 15:05 Freq: Status: Active Protocol: Document 08/27/22 11:18 [facility] (Rec: 08/27/22 12:10 [facility] [id number]) Posture Evaluation [facility] Postural Classification System Elbow Flexion Test 3 PT-OP-K Range of Motion Start: 08/26/22 15:05 Freq: Status: Active Protocol: Document 08/27/22 11:18 [facility] (Rec: 08/27/22 12:10 [facility] [id number]) Elbow/Forearm Range of Motion Elbow/Forearm Right Active Elbow Flexion (degrees) 149 Elbow Extension (degrees) 8 Pronation (degrees) 63 Supination (degrees) 84 Comments pain w/flex Left Active Elbow Flexion (degrees) 150 Elbow Extension (degrees) 0 Pronation (degrees) 69 Supination (degrees) 85 Wrist Goniometric Range of Motion Wrist Right Flexion Active (degrees) 80 Extension Active (degrees) 58 Ulnar Deviation Active (degrees) 40 Radial Deviation Active (degrees) 20 Left Flexion Active (degrees) 81 Extension Active (degrees) 45 Ulnar Deviation Passive (degrees) 36 Radial Deviation Active (degrees) 28 PT-OP-L Special Tests Start: 08/26/22 15:05 Freq: Status: Active Protocol: Document 08/27/22 11:18 [facility] (Rec: 08/27/22 12:10 [facility] [id number]) Special Tests Elbow Special Tests Mill's test Test Results neg Neural Special Tests- Upper Body Radial Nerve Tension Test Results neg Ulnar Nerve Tension Test Results neg Median Nerve Tension Test Results neg PT-OP-M Strength Start: 08/26/22 15:05 Freq: Status: Active Protocol: Document 08/27/22 11:18 [facility] (Rec: 08/27/22 12:10 [facility] [id number]) Shoulder Strength Shoulder Manual Muscle Testing Right Flexion 5 Normal Extension 5 Normal Abduction (C5) 5 Normal External Rotation 5 Normal Internal Rotation 5 Normal Comments pain w/IR Elbow/Forearm Strength Elbow and Forearm Manual Muscle Testing Right Flexion (C6) 4+ Good+ Extension (C7) 5 Normal Pronation 5 Normal Supination 4- Good- Comments flex in pronation: 4-/5 pain; pain w/supination Left Flexion (C6) 5 Normal Extension (C7) 5 Normal Pronation 5 Normal Supination 5 Normal Comments flex in pronation:5 Wrist Strength Wrist Manual Muscle Testing Right Flexion (C7) 4 Good Extension (C6) 4+ Good+ Ulnar Deviation 5 Normal Radial Deviation 4 Good Comments radial deviation & flex strain Left Flexion (C7) 5 Normal Extension (C6) 5 Normal Ulnar Deviation 5 Normal Radial Deviation 5 Normal Hand Continuous Improvement Coach/Pinch Strength Hand Dominance Hand Dominance Right Hand Strength Right Comments 85, 88, 87 lb Left Comments 98, 100, 101 lb PT-OP-Q Treatments Start: 08/26/22 15:05 Freq: Status: Active Protocol: Document 09/16/22 13:34 [facility] (Rec: 09/16/22 14:56 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 black gripper squeezes 2. orange Y chorus dancer strength squeezes Side right Reps/Minutes 10 ea Comments cues for slow release Standing Exercises haywood carry Side bilateral Equipment Used 10lb dumbells holding top Reps/Minutes 30ftx2 Manual Therapy Treatment Soft Tissue Mobilization biceps Body Location R distal brachialis Mobilization Type Rolling Intensity/Depth Moderate Body Position Sitting extensors Body Location R wrist extenors & pronator teres Mobilization Type Cross-Friction,Rolling, Strumming Intensity/Depth Moderate Body Position Sitting Joint Mobilizations carpals Joint AP FM ulna Comments distraciton in flex FM radius Comments AP distal FM & PA proximal FM PT-OP-R Modalities Start: 08/26/22 15:05 Freq: Status: Active Protocol: Document 09/16/22 13:34 [facility] (Rec: 09/16/22 14:56 [facility] [id number]) Infrared Treatment Treatment lat epicondyle Duration (Minutes) 1 Body Position Sitting Program or Protocal chornoic tendon high PT-OP-T Assessment and Plan Start: 08/26/22 15:05 Freq: Status: Active Protocol: Document 09/16/22 13:34 [facility] (Rec: 09/16/22 14:56 [facility] [id number]) Physical Therapy Assessment Goals chorus dancer strength Air Quality Instrument Specialist Goal (LTG) Pt will have equal chorus dancer strength in RUE when compared to LUE. LTG Duration 2/ activities Air Quality Instrument Specialist Goal (LTG) Pt will be able to chart picker heavy objects like his vacuum w/RUE w/o inc pain noted. LTG Duration 11/19/22 strength Short Term Goal (STG) Pt will be indep w/HEP STG Duration 10/07/22 Group Home Goal (LTG) Ptw ill score 4/5 on EFT and 5 /5 on all MMT of elbow and wrist to show improved UE strength to improve ability to lift and use UE. LTG Duration 11/19 Assessment Summary Assessment Pt presented w/full ext today and improved pronation and supination. no change in chorus dancer strength but radial deviation & ext 5/5 on R today but still dec strenght w/wrist flex and w/pronated elbow flex resisted but after manual these were no longer painful. Physical Therapy Plan Frequency and Duration Frequency of Treatment 1-2x/wk Duration of treatment (weeks) 12 Plan of Care Start Date 08/27/22 Plan of Care End Date 11/19/22 Next Visit Focus/Plan Next Note Type Treatment Note Next Visit Plan laser, STM and jt mobs to elbow and wrist, ionto
--- NOTE | 2022-10-08 08:36 | PT.OTN ---
Current Diagnoses Abnormal posture (10/08/22) Weakness (10/08/22) Strain of unspecified muscles, fascia and tendons at forearm level, right arm, initial encounter (10/08/22) Physical Therapy Treatment Note PT-OP-A Visit Information Start: 08/26/22 15:05 Freq: Status: Active Protocol: Document 10/08/22 07:30 [facility] (Rec: 10/08/22 08:36 [facility] [id number]) Out-Patient Physical Therapy Visit Information Visit Information Visit Type Treatment Note Visit Start Time 07:30 Visit Stop Time 08:12 Total Visit Minutes 42 Visit Number 5 Number of GUT PULLER Visits 0 PT-OP-B Current Condition Start: 08/26/22 15:05 Freq: Status: Active Protocol: Document 08/27/22 11:18 [facility] (Rec: 08/27/22 12:10 [facility] [id number]) Current Condition History of Current Condition Onset Date March Current Complaints R elbow to forearm and into brachium History of Current Condition Pt was weed eating with his new battery operated one that doesn't have a strap and he powered through it and did about 3 hours of work. He could feel it during, but powered through it. This happened in march but it hasn't gotten better. He still works out still but just feels it. He moved some furniture a couplew [place] ago and he isn't sure if it was weak or he held back d/t the pain. Pt is R hand dominant. Denies neck or shoulder pain. For work, he on the computer,b ut he doesn't notice that inc it. Golfing didn't bother it. Prior Treatments and Tests none Treatment Goals Patient/Caregiver Goals prevent further damage; be able to leaf size picker heavy things like his vacuum PT-OP-C Subjective Start: 08/26/22 15:05 Freq: Status: Active Protocol: Document 10/08/22 07:30 [facility] (Rec: 10/08/22 08:36 [facility] [id number]) OP-PT Subjective Patient Comments Patient Comments noticedi t when carrying in a box for a friend w/2 e bikes PT-OP-F Manual Assessment Start: 08/26/22 15:05 Freq: Status: Active Protocol: Document 08/27/22 11:18 [facility] (Rec: 08/27/22 12:10 [facility] [id number]) Manual Assessments Soft Tissue Assessment Soft Tissue Mobility Assessment tightness in extensor tendsons and biceps PT-OP-J Posture/Palpation/Skin Start: 08/26/22 15:05 Freq: Status: Active Protocol: Document 08/27/22 11:18 [facility] (Rec: 08/27/22 12:10 [facility] [id number]) Posture Evaluation [facility] Postural Classification System Elbow Flexion Test 3 PT-OP-K Range of Motion Start: 08/26/22 15:05 Freq: Status: Active Protocol: Document 08/27/22 11:18 [facility] (Rec: 08/27/22 12:10 [facility] [id number]) Elbow/Forearm Range of Motion Elbow/Forearm Right Active Elbow Flexion (degrees) 149 Elbow Extension (degrees) 8 Pronation (degrees) 63 Supination (degrees) 84 Comments pain w/flex Left Active Elbow Flexion (degrees) 150 Elbow Extension (degrees) 0 Pronation (degrees) 69 Supination (degrees) 85 Wrist Goniometric Range of Motion Wrist Right Flexion Active (degrees) 80 Extension Active (degrees) 58 Ulnar Deviation Active (degrees) 40 Radial Deviation Active (degrees) 20 Left Flexion Active (degrees) 81 Extension Active (degrees) 45 Ulnar Deviation Passive (degrees) 36 Radial Deviation Active (degrees) 28 PT-OP-L Special Tests Start: 08/26/22 15:05 Freq: Status: Active Protocol: Document 08/27/22 11:18 [facility] (Rec: 08/27/22 12:10 [facility] [id number]) Special Tests Elbow Special Tests Mill's test Test Results neg Neural Special Tests- Upper Body Radial Nerve Tension Test Results neg Ulnar Nerve Tension Test Results neg Median Nerve Tension Test Results neg PT-OP-M Strength Start: 08/26/22 15:05 Freq: Status: Active Protocol: Document 08/27/22 11:18 [facility] (Rec: 08/27/22 12:10 [facility] [id number]) Shoulder Strength Shoulder Manual Muscle Testing Right Flexion 5 Normal Extension 5 Normal Abduction (C5) 5 Normal External Rotation 5 Normal Internal Rotation 5 Normal Comments pain w/IR Elbow/Forearm Strength Elbow and Forearm Manual Muscle Testing Right Flexion (C6) 4+ Good+ Extension (C7) 5 Normal Pronation 5 Normal Supination 4- Good- Comments flex in pronation: 4-/5 pain; pain w/supination Left Flexion (C6) 5 Normal Extension (C7) 5 Normal Pronation 5 Normal Supination 5 Normal Comments flex in pronation:5 Wrist Strength Wrist Manual Muscle Testing Right Flexion (C7) 4 Good Extension (C6) 4+ Good+ Ulnar Deviation 5 Normal Radial Deviation 4 Good Comments radial deviation & flex strain Left Flexion (C7) 5 Normal Extension (C6) 5 Normal Ulnar Deviation 5 Normal Radial Deviation 5 Normal Hand Cook Station/Pinch Strength Hand Dominance Hand Dominance Right Hand Strength Right Comments 85, 88, 87 lb Left Comments 98, 100, 101 lb PT-OP-Q Treatments Start: 08/26/22 15:05 Freq: Status: Active Protocol: Document 10/08/22 07:30 [facility] (Rec: 10/08/22 08:36 [facility] [id number]) Therapeutic Exercises Sitting Exercises wt roll up Side bilateral Equipment Used 5lb Reps/Minutes 6x theraroll Sitting Exercise Name rolls fwd/back Side bilateral Reps/Minutes 2 sec x10 knockout man Sitting Exercise Name 1. black gripper squeezes 2. orange Y knockout man strength squeezes Side right Reps/Minutes 5 sec hold x12 Comments cues for slow release Standing Exercises haywood carry Side right Equipment Used 10lb dumbells holding top Reps/Minutes 40ftx2 brachialis curl Standing Exercise Name brachialis carry Side right Equipment Used 10lb dumbell Reps/Minutes 40ftx2 Manual Therapy Treatment Soft Tissue Mobilization biceps Body Location R distal brachialis Mobilization Type Rolling Intensity/Depth Moderate Body Position Sitting extensors Body Location R wrist extenors & pronator teres Mobilization Type Cross-Friction,Rolling, Strumming Intensity/Depth Moderate Body Position Sitting Joint Mobilizations carpals Joint AP lat carpels FM & med glide FM radius Comments proximal distraction and distal AP FM PT-OP-R Modalities Start: 08/26/22 15:05 Freq: Status: Active Protocol: Document 10/08/22 07:30 [facility] (Rec: 10/08/22 08:36 [facility] [id number]) Infrared Treatment Treatment lat epicondyle Duration (Minutes) 1 Body Position Sitting Program or Protocal chornoic tendon high PT-OP-T Assessment and Plan Start: 08/26/22 15:05 Freq: Status: Active Protocol: Document 10/08/22 07:30 [facility] (Rec: 10/08/22 08:36 [facility] [id number]) Physical Therapy Assessment Goals knockout man strength [facility] Goal (LTG) Pt will have equal knockout man strength in RUE when compared to LUE. LTG Duration 11/19 activities Flying Squad Worker Goal (LTG) Pt will be able to leaf size picker heavy objects like his vacuum w/RUE w/o inc pain noted. LTG Duration 11/19/22 strength Short Term Goal (STG) Pt will be indep w/HEP STG Duration 10/07/22 Flying Squad Worker Goal (LTG) Ptw ill score 4/5 on EFT and 5 /5 on all MMT of elbow and wrist to show improved UE strength to improve ability to lift and use UE. LTG Duration 11/19 Assessment Summary Assessment pt having less pain w/ resistance and shows strong elbow and wrist resistance. he does still note soem knockout man weakness. he had improved wrist flex in supinated position after mnaul w/less pain w./resistacne Physical Therapy Plan Frequency and Duration Frequency of Treatment 1-2x/wk Duration of treatment (weeks) 12 Plan of Care Start Date 08/27/22 Plan of Care End Date 11/19/22 Next Visit Focus/Plan Next Note Type Treatment Note Next Visit Plan laser, STM and jt mobs to elbow and wrist, ionto
--- NOTE | 2022-10-15 18:12 | PT.OTN ---
Current Diagnoses Abnormal posture (10/15/22) Weakness (10/15/22) Strain of unspecified muscles, fascia and tendons at forearm level, right arm, initial encounter (10/15/22) Physical Therapy Treatment Note PT-OP-A Visit Information Start: 08/26/22 15:05 Freq: Status: Active Protocol: Document 10/15/22 16:58 [facility] (Rec: 10/15/22 18:12 [facility] [id number]) Out-Patient Physical Therapy Visit Information Visit Information Visit Type Treatment Note Visit Start Time 16:52 Visit Stop Time 17:33 Total Visit Minutes 41 Visit Number 6 Number of LOAN ASSOCIATE Visits 0 PT-OP-B Current Condition Start: 08/26/22 15:05 Freq: Status: Active Protocol: Document 08/27/22 11:18 [facility] (Rec: 08/27/22 12:10 [facility] [id number]) Current Condition History of Current Condition Onset Date March Current Complaints R elbow to forearm and into brachium History of Current Condition Pt was weed eating with his new battery operated one that doesn't have a strap and he powered through it and did about 3 hours of work. He could feel it during, but powered through it. This happened in march but it hasn't gotten better. He still works out still but just feels it. He moved some furniture a couplew [place] ago and he isn't sure if it was weak or he held back d/t the pain. Pt is R hand dominant. Denies neck or shoulder pain. For work, he on the computer,b ut he doesn't notice that inc it. Golfing didn't bother it. 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 (Rec: 10/15/22 18:12 [facility] [id number]) OP-PT Subjective Patient Comments Patient Comments Pt reports soreness from carrying grandsons and felt it a little. PT-OP-F Manual Assessment Start: 08/26/22 15:05 Freq: Status: Active Protocol: Document 08/27/22 11:18 [facility] (Rec: 08/27/22 12:10 [facility] [id number]) Manual Assessments Soft Tissue Assessment Soft Tissue Mobility Assessment tightness in extensor tendsons and biceps PT-OP-J Posture/Palpation/Skin Start: 08/26/22 15:05 Freq: Status: Active Protocol: Document 08/27/22 11:18 [facility] (Rec: 08/27/22 12:10 [facility] [id number]) Posture Evaluation [facility] Postural Classification System Elbow Flexion Test 3 PT-OP-K Range of Motion Start: 08/26/22 15:05 Freq: Status: Active Protocol: Document 08/27/22 11:18 [facility] (Rec: 08/27/22 12:10 [facility] [id number]) Elbow/Forearm Range of Motion Elbow/Forearm Right Active Elbow Flexion (degrees) 149 Elbow Extension (degrees) 8 Pronation (degrees) 63 Supination (degrees) 84 Comments pain w/flex Left Active Elbow Flexion (degrees) 150 Elbow Extension (degrees) 0 Pronation (degrees) 69 Supination (degrees) 85 Wrist Goniometric Range of Motion Wrist Right Flexion Active (degrees) 80 Extension Active (degrees) 58 Ulnar Deviation Active (degrees) 40 Radial Deviation Active (degrees) 20 Left Flexion Active (degrees) 81 Extension Active (degrees) 45 Ulnar Deviation Passive (degrees) 36 Radial Deviation Active (degrees) 28 PT-OP-L Special Tests Start: 08/26/22 15:05 Freq: Status: Active Protocol: Document 08/27/22 11:18 [facility] (Rec: 08/27/22 12:10 [facility] [id number]) Special Tests Elbow Special Tests Mill's test Test Results neg Neural Special Tests- Upper Body Radial Nerve Tension Test Results neg Ulnar Nerve Tension Test Results neg Median Nerve Tension Test Results neg PT-OP-M Strength Start: 08/26/22 15:05 Freq: Status: Active Protocol: Document 10/15/22 16:58 [facility] (Rec: 10/15/22 18:12 [facility] [id number]) Shoulder Strength Shoulder Manual Muscle Testing Right Flexion 5 Normal Extension 5 Normal Abduction (C5) 5 Normal External Rotation 5 Normal Internal Rotation 5 Normal Elbow/Forearm Strength Elbow and Forearm Manual Muscle Testing Right Flexion (C6) 5 Normal Extension (C7) 5 Normal Pronation 5 Normal Supination 5 Normal Left Flexion (C6) 5 Normal Extension (C7) 5 Normal Pronation 5 Normal Supination 5 Normal Comments flex in pronation:5 Wrist Strength Wrist Manual Muscle Testing Right Flexion (C7) 5 Normal Extension (C6) 4+ Good+ Ulnar Deviation 5 Normal Radial Deviation 5 Normal Left Flexion (C7) 5 Normal Extension (C6) 5 Normal Ulnar Deviation 5 Normal Radial Deviation 5 Normal Hand Explosive Ordnance Handler/Pinch Strength Hand Strength Right Comments average 86 lb PT-OP-Q Treatments Start: 08/26/22 15:05 Freq: Status: Active Protocol: Document 10/15/22 16:58 [facility] (Rec: 10/15/22 18:12 [facility] [id number]) Therapeutic Exercises Sitting Exercises wt roll up Side bilateral Equipment Used 5lb Reps/Minutes 8x Comments in mirror watching shoulder theraroll Sitting Exercise Name rolls fwd/back Side bilateral Reps/Minutes 2 sec x10 kiln remover Sitting Exercise Name 1. black gripper squeezes 2. orange Y kiln remover strength squeezes Side right Reps/Minutes 5 sec hold x12 Comments cues for slow release Manual Therapy Treatment Soft Tissue Mobilization biceps Body Location R mid to distal brachialis & biceps Mobilization Type Rolling Intensity/Depth Moderate Body Position Supine Comments FM extensors Body Location R brachioradialis & pronator teres Mobilization Type Cross-Friction,Rolling, Strumming Intensity/Depth Moderate Body Position Supine Joint Mobilizations ulna Comments R distraction FM in flex radius Comments proximal PA FM in flex PT-OP-R Modalities Start: 08/26/22 15:05 Freq: Status: Active Protocol: Document 10/08/22 07:30 [facility] (Rec: 10/08/22 08:36 [facility] [id number]) Infrared Treatment Treatment lat epicondyle Duration (Minutes) 1 Body Position Sitting Program or Protocal chornoic tendon high PT-OP-T Assessment and Plan Start: 08/26/22 15:05 Freq: Status: Active Protocol: Document 10/15/22 16:58 [facility] (Rec: 10/15/22 18:12 [facility] [id number]) Physical Therapy Assessment Goals kiln remover strength Prison Goal (LTG) Pt will have equal kiln remover strength in RUE when compared to LUE. 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 LTG Duration 11/19/22 strength Short Term Goal (STG) Pt will be indep w/HEP STG Duration achieved-advancing as able Prison Goal (LTG) Ptw ill score 4/5 on EFT and 5 /5 on all MMT of elbow and wrist to show improved UE strength to improve ability to lift and use UE. 10/15-MMT 5/5 now LTG Duration 11/19 Assessment Summary Assessment Pt still shows weak kiln remover but does not have pain with gripping. Pain w/elbwo flex resisted mostly in pronated position which improved after manual treatment tod less pain . Physical Therapy Plan Frequency and Duration Frequency of Treatment 1-2x/wk Duration of treatment (weeks) 12 Plan of Care Start Date 08/27/22 Plan of Care End Date 11/19/22 Next Visit Focus/Plan Next Note Type Treatment Note Next Visit Plan STM and jt mobs to elbow and wrist, consider US or javi
--- NOTE | 2022-10-15 18:30 | PT.OPPN ---
Current Diagnoses Abnormal posture (10/22/22) Weakness (10/22/22) Strain of unspecified muscles, fascia and tendons at forearm level, right arm, initial encounter (10/22/22) Physical Therapy Progress Note PT-OP-A Visit Information Start: 08/26/22 15:05 Freq: Status: Active Protocol: Document 10/15/22 16:58 [facility] (Rec: 10/15/22 18:12 [facility] [id number]) Out-Patient Physical Therapy Visit Information Visit Information Visit Type Treatment Note Visit Start Time 16:52 Visit Stop Time 17:33 Total Visit Minutes 41 Visit Number 6 Number of FLAT KNITTER HELPER Visits 0 PT-OP-B Current Condition Start: 08/26/22 15:05 Freq: Status: Active Protocol: Document 08/27/22 11:18 [facility] (Rec: 08/27/22 12:10 [facility] [id number]) Current Condition History of Current Condition Onset Date March Current Complaints R elbow to forearm and into brachium History of Current Condition Pt was weed eating with his new battery operated one that doesn't have a strap and he powered through it and did about 3 hours of work. He could feel it during, but powered through it. This happened in march but it hasn't gotten better. He still works out still but just feels it. He moved some furniture a couplew [place] ago and he isn't sure if it was weak or he held back d/t the pain. Pt is R hand dominant. Denies neck or shoulder pain. For work, he on the computer,b ut he doesn't notice that inc it. Golfing didn't bother it. 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 PT-OP-F Manual Assessment Start: 08/26/22 15:05 Freq: Status: Active Protocol: Document 08/27/22 11:18 [facility] (Rec: 08/27/22 12:10 [facility] [id number]) Manual Assessments Soft Tissue Assessment Soft Tissue Mobility Assessment tightness in extensor tendsons and biceps PT-OP-J Posture/Palpation/Skin Start: 08/26/22 15:05 Freq: Status: Active Protocol: Document 08/27/22 11:18 [facility] (Rec: 08/27/22 12:10 [facility] [id number]) Posture Evaluation [facility] Postural Classification System Elbow Flexion Test 3 PT-OP-K Range of Motion Start: 08/26/22 15:05 Freq: Status: Active Protocol: Document 08/27/22 11:18 [facility] (Rec: 08/27/22 12:10 [facility] [id number]) Elbow/Forearm Range of Motion Elbow/Forearm Measured in Degrees Right Active Elbow Flexion (degrees) 149 Elbow Extension (degrees) 8 Pronation (degrees) 63 Supination (degrees) 84 Comments pain w/flex Left Active Elbow Flexion (degrees) 150 Elbow Extension (degrees) 0 Pronation (degrees) 69 Supination (degrees) 85 Wrist Goniometric Range of Motion Wrist Measured in Degrees Right Flexion Active (degrees) 80 Extension Active (degrees) 58 Ulnar Deviation Active (degrees) 40 Radial Deviation Active (degrees) 20 Left Flexion Active (degrees) 81 Extension Active (degrees) 45 Ulnar Deviation Passive (degrees) 36 Radial Deviation Active (degrees) 28 PT-OP-L Special Tests Start: 08/26/22 15:05 Freq: Status: Active Protocol: Document 08/27/22 11:18 [facility] (Rec: 08/27/22 12:10 [facility] [id number]) Special Tests Elbow Special Tests Mill's test Test Results neg Neural Special Tests- Upper Body Radial Nerve Tension Test Results neg Ulnar Nerve Tension Test Results neg Median Nerve Tension Test Results neg PT-OP-M Strength Start: 08/26/22 15:05 Freq: Status: Active Protocol: Document 10/15/22 16:58 [facility] (Rec: 10/15/22 18:12 [facility] [id number]) Shoulder Strength Shoulder Manual Muscle Testing Right Flexion 5 Normal Extension 5 Normal Abduction (C5) 5 Normal External Rotation 5 Normal Internal Rotation 5 Normal Elbow/Forearm Strength Elbow and Forearm Manual Muscle Testing Right Flexion (C6) 5 Normal Extension (C7) 5 Normal Pronation 5 Normal Supination 5 Normal Left Flexion (C6) 5 Normal Extension (C7) 5 Normal Pronation 5 Normal Supination 5 Normal Comments flex in pronation:5 Wrist Strength Wrist Manual Muscle Testing Right Flexion (C7) 5 Normal Extension (C6) 4+ Good+ Ulnar Deviation 5 Normal Radial Deviation 5 Normal Left Flexion (C7) 5 Normal Extension (C6) 5 Normal Ulnar Deviation 5 Normal Radial Deviation 5 Normal Hand Dry Starch Supervisor/Pinch Strength Hand Strength Right Comments average 86 lb PT-OP-T Assessment and Plan Start: 08/26/22 15:05 Freq: Status: Active Protocol: Document 10/15/22 16:58 [facility] (Rec: 10/15/22 18:12 [facility] [id number]) Physical Therapy Assessment Goals outside installation machinist strength Tutoring Assistant Goal (LTG) Pt will have equal outside installation machinist strength in RUE when compared to LUE. LTG Duration 11/19 activities Tutoring Assistant Goal (LTG) Pt will be able to picket labor union heavy objects like his vacuum w/RUE w/o inc pain noted. LTG Duration 11/19/22 strength Short Term Goal (STG) Pt will be indep w/HEP STG Duration achieved-advancing as able Tutoring Assistant Goal (LTG) Ptw ill score 4/5 on EFT and 5 /5 on all MMT of elbow and wrist to show improved UE strength to improve ability to lift and use UE. 10/15-MMT 5/5 now LTG Duration 11/19 Assessment Summary Assessment Pt still shows weak outside installation machinist but does not have pain with gripping. Pain w/elbwo flex resisted mostly in pronated position which improved after manual treatment tod less pain . Physical Therapy Plan Frequency and Duration Frequency of Treatment 1-2x/wk Duration of treatment (weeks) 12 Plan of Care Start Date 08/27/22 Plan of Care End Date 11/19/22 Next Visit Focus/Plan Next Note Type Treatment Note Next Visit Plan STM and jt mobs to elbow and wrist, consider US or ionto
--- NOTE | 2022-10-22 08:22 | PT.OTN ---
Current Diagnoses Abnormal posture (10/22/22) Weakness (10/22/22) Strain of unspecified muscles, fascia and tendons at forearm level, right arm, initial encounter (10/22/22) Physical Therapy Treatment Note PT-OP-A Visit Information Start: 08/26/22 15:05 Freq: Status: Active Protocol: Document 10/22/22 07:30 [facility] (Rec: 10/22/22 08:21 [facility] [id number]) Out-Patient Physical Therapy Visit Information Visit Information Visit Type Treatment Note Visit Start Time 07:31 Visit Stop Time 08:11 Total Visit Minutes 40 Visit Number 7 Number of PARTS CHASER Visits 0 PT-OP-B Current Condition Start: 08/26/22 15:05 Freq: Status: Active Protocol: Document 08/27/22 11:18 [facility] (Rec: 08/27/22 12:10 [facility] [id number]) Current Condition History of Current Condition Onset Date March Current Complaints R elbow to forearm and into brachium History of Current Condition Pt was weed eating with his new battery operated one that doesn't have a strap and he powered through it and did about 3 hours of work. He could feel it during, but powered through it. This happened in march but it hasn't gotten better. He still works out still but just feels it. He moved some furniture a couplew [place] ago and he isn't sure if it was weak or he held back d/t the pain. Pt is R hand dominant. Denies neck or shoulder pain. For work, he on the computer,b ut he doesn't notice that inc it. Golfing didn't bother it. 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 PT-OP-C Subjective Start: 08/26/22 15:05 Freq: Status: Active Protocol: Document 10/22/22 07:30 [facility] (Rec: 10/22/22 08:21 [facility] [id number]) OP-PT Subjective Patient Comments Patient Comments Pt reports overall doing better Patient Reported Progress Improving PT-OP-F Manual Assessment Start: 08/26/22 15:05 Freq: Status: Active Protocol: Document 08/27/22 11:18 [facility] (Rec: 08/27/22 12:10 [facility] [id number]) Manual Assessments Soft Tissue Assessment Soft Tissue Mobility Assessment tightness in extensor tendsons and biceps PT-OP-J Posture/Palpation/Skin Start: 08/26/22 15:05 Freq: Status: Active Protocol: Document 08/27/22 11:18 [facility] (Rec: 08/27/22 12:10 [facility] [id number]) Posture Evaluation [facility] Postural Classification System Elbow Flexion Test 3 PT-OP-K Range of Motion Start: 08/26/22 15:05 Freq: Status: Active Protocol: Document 08/27/22 11:18 [facility] (Rec: 08/27/22 12:10 [facility] [id number]) Elbow/Forearm Range of Motion Elbow/Forearm Right Active Elbow Flexion (degrees) 149 Elbow Extension (degrees) 8 Pronation (degrees) 63 Supination (degrees) 84 Comments pain w/flex Left Active Elbow Flexion (degrees) 150 Elbow Extension (degrees) 0 Pronation (degrees) 69 Supination (degrees) 85 Wrist Goniometric Range of Motion Wrist Right Flexion Active (degrees) 80 Extension Active (degrees) 58 Ulnar Deviation Active (degrees) 40 Radial Deviation Active (degrees) 20 Left Flexion Active (degrees) 81 Extension Active (degrees) 45 Ulnar Deviation Passive (degrees) 36 Radial Deviation Active (degrees) 28 PT-OP-L Special Tests Start: 08/26/22 15:05 Freq: Status: Active Protocol: Document 08/27/22 11:18 [facility] (Rec: 08/27/22 12:10 [facility] [id number]) Special Tests Elbow Special Tests Mill's test Test Results neg Neural Special Tests- Upper Body Radial Nerve Tension Test Results neg Ulnar Nerve Tension Test Results neg Median Nerve Tension Test Results neg PT-OP-M Strength Start: 08/26/22 15:05 Freq: Status: Active Protocol: Document 10/15/22 16:58 [facility] (Rec: 10/15/22 18:12 [facility] [id number]) Shoulder Strength Shoulder Manual Muscle Testing Right Flexion 5 Normal Extension 5 Normal Abduction (C5) 5 Normal External Rotation 5 Normal Internal Rotation 5 Normal Elbow/Forearm Strength Elbow and Forearm Manual Muscle Testing Right Flexion (C6) 5 Normal Extension (C7) 5 Normal Pronation 5 Normal Supination 5 Normal Left Flexion (C6) 5 Normal Extension (C7) 5 Normal Pronation 5 Normal Supination 5 Normal Comments flex in pronation:5 Wrist Strength Wrist Manual Muscle Testing Right Flexion (C7) 5 Normal Extension (C6) 4+ Good+ Ulnar Deviation 5 Normal Radial Deviation 5 Normal Left Flexion (C7) 5 Normal Extension (C6) 5 Normal Ulnar Deviation 5 Normal Radial Deviation 5 Normal Hand Cs Associate/Pinch Strength Hand Strength Right Comments average 86 lb PT-OP-Q Treatments Start: 08/26/22 15:05 Freq: Status: Active Protocol: Document 10/22/22 07:30 [facility] (Rec: 10/22/22 08:21 [facility] [id number]) Therapeutic Exercises Supine Exercises foam roll Supine Exercise Name B flex, Habd & abd // on roll & perp ext over Side bilateral Reps/Minutes 5 min Sitting Exercises stretches Sitting Exercise Name self R fist rib mob Side right Reps/Minutes 10 Standing Exercises roll out Standing Exercise Name ball scap roll Side right rows Side bilateral Equipment Used L4 Reps/Minutes 15 Manual Therapy Treatment Soft Tissue Mobilization lats Body Location r Mobilization Type Rolling Intensity/Depth Moderate median n path Mobilization Type Rolling,Strumming Intensity/Depth Moderate Comments w/glide Joint Mobilizations GH Joint R post FM AC Joint R gapping FM PT-OP-R Modalities Start: 08/26/22 15:05 Freq: Status: Active Protocol: Document 10/08/22 07:30 [facility] (Rec: 10/08/22 08:36 [facility] [id number]) Infrared Treatment Treatment lat epicondyle Duration (Minutes) 1 Body Position Sitting Program or Protocal chornoic tendon high PT-OP-T Assessment and Plan Start: 08/26/22 15:05 Freq: Status: Active Protocol: Document 10/22/22 07:30 [facility] (Rec: 10/22/22 08:21 [facility] [id number]) Physical Therapy Assessment Goals campus administrative assistant strength Media Center Assistant Goal (LTG) Pt will have equal campus administrative assistant strength in RUE when compared to LUE. 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 LTG Duration 11/19/22 strength Short Term Goal (STG) Pt will be indep w/HEP STG Duration achieved-advancing as able Media Center Assistant Goal (LTG) Ptw ill score 4/5 on EFT and 5 /5 on all MMT of elbow and wrist to show improved UE strength to improve ability to lift and use UE. 10/15-MMT 02/20 now LTG Duration 11/19 Assessment Summary Assessment Pt did well with exercises w/ cues for scap position. He had dec pain in arm w/scap setting. Improved ability to set R scap w/manual Physical Therapy Plan Frequency and Duration Frequency of Treatment 1-2x/wk Duration of treatment (weeks) 12 Plan of Care Start Date 08/27/22 Plan of Care End Date 11/19/22 Next Visit Focus/Plan Next Note Type Treatment Note Next Visit Plan cont to wokr on med n tension
--- NOTE | 2022-10-29 20:22 | PT.OTN ---
Current Diagnoses Abnormal posture (10/29/22) Weakness (10/29/22) Strain of unspecified muscles, fascia and tendons at forearm level, right arm, initial encounter (10/29/22) Physical Therapy Treatment Note PT-OP-A Visit Information Start: 08/26/22 15:05 Freq: Status: Active Protocol: Document 10/29/22 16:02 [facility] (Rec: 10/29/22 20:22 [facility] [id number]) Out-Patient Physical Therapy Visit Information Visit Information Visit Type Treatment Note Visit Start Time 16:05 Visit Stop Time 16:44 Total Visit Minutes 39 Visit Number 8 Number of SHERIFFS OFFICER Visits 0 PT-OP-B Current Condition Start: 08/26/22 15:05 Freq: Status: Active Protocol: Document 08/27/22 11:18 [facility] (Rec: 08/27/22 12:10 [facility] [id number]) Current Condition History of Current Condition Onset Date March Current Complaints R elbow to forearm and into brachium History of Current Condition Pt was weed eating with his new battery operated one that doesn't have a strap and he powered through it and did about 3 hours of work. He could feel it during, but powered through it. This happened in march but it hasn't gotten better. He still works out still but just feels it. He moved some furniture a couplew [place] ago and he isn't sure if it was weak or he held back d/t the pain. Pt is R hand dominant. Denies neck or shoulder pain. For work, he on the computer,b ut he doesn't notice that inc it. Golfing didn't bother it. 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 Patient Reported Progress Improving PT-OP-F Manual Assessment Start: 08/26/22 15:05 Freq: Status: Active Protocol: Document 08/27/22 11:18 [facility] (Rec: 08/27/22 12:10 [facility] [id number]) Manual Assessments Soft Tissue Assessment Soft Tissue Mobility Assessment tightness in extensor tendsons and biceps PT-OP-J Posture/Palpation/Skin Start: 08/26/22 15:05 Freq: Status: Active Protocol: Document 08/27/22 11:18 [facility] (Rec: 08/27/22 12:10 [facility] [id number]) Posture Evaluation [facility] Postural Classification System Elbow Flexion Test 3 PT-OP-K Range of Motion Start: 08/26/22 15:05 Freq: Status: Active Protocol: Document 08/27/22 11:18 [facility] (Rec: 08/27/22 12:10 [facility] [id number]) Elbow/Forearm Range of Motion Elbow/Forearm Right Active Elbow Flexion (degrees) 149 Elbow Extension (degrees) 8 Pronation (degrees) 63 Supination (degrees) 84 Comments pain w/flex Left Active Elbow Flexion (degrees) 150 Elbow Extension (degrees) 0 Pronation (degrees) 69 Supination (degrees) 85 Wrist Goniometric Range of Motion Wrist Right Flexion Active (degrees) 80 Extension Active (degrees) 58 Ulnar Deviation Active (degrees) 40 Radial Deviation Active (degrees) 20 Left Flexion Active (degrees) 81 Extension Active (degrees) 45 Ulnar Deviation Passive (degrees) 36 Radial Deviation Active (degrees) 28 PT-OP-L Special Tests Start: 08/26/22 15:05 Freq: Status: Active Protocol: Document 08/27/22 11:18 [facility] (Rec: 08/27/22 12:10 [facility] [id number]) Special Tests Elbow Special Tests Mill's test Test Results neg Neural Special Tests- Upper Body Radial Nerve Tension Test Results neg Ulnar Nerve Tension Test Results neg Median Nerve Tension Test Results neg PT-OP-M Strength Start: 08/26/22 15:05 Freq: Status: Active Protocol: Document 10/15/22 16:58 [facility] (Rec: 10/15/22 18:12 [facility] [id number]) Shoulder Strength Shoulder Manual Muscle Testing Right Flexion 5 Normal Extension 5 Normal Abduction (C5) 5 Normal External Rotation 5 Normal Internal Rotation 5 Normal Elbow/Forearm Strength Elbow and Forearm Manual Muscle Testing Right Flexion (C6) 5 Normal Extension (C7) 5 Normal Pronation 5 Normal Supination 5 Normal Left Flexion (C6) 5 Normal Extension (C7) 5 Normal Pronation 5 Normal Supination 5 Normal Comments flex in pronation:5 Wrist Strength Wrist Manual Muscle Testing Right Flexion (C7) 5 Normal Extension (C6) 4+ Good+ Ulnar Deviation 5 Normal Radial Deviation 5 Normal Left Flexion (C7) 5 Normal Extension (C6) 5 Normal Ulnar Deviation 5 Normal Radial Deviation 5 Normal Hand Food And Beverage Controller/Pinch Strength Hand Strength Right Comments average 86 lb PT-OP-Q Treatments Start: 08/26/22 15:05 Freq: Status: Active Protocol: Document 10/29/22 16:02 [facility] (Rec: 10/29/22 20:22 [facility] [id number]) Therapeutic Exercises Supine Exercises foam roll Supine Exercise Name B flex, Habd & abd // on roll & perp ext over Side bilateral Reps/Minutes 4 min Sitting Exercises wt roll up Side bilateral Equipment Used 5lb Reps/Minutes 8x Comments in mirror watching shoulder Standing Exercises rows Side bilateral Equipment Used L4 Reps/Minutes 15 Manual Therapy Treatment Soft Tissue Mobilization median n path Mobilization Type Rolling,Strumming Comments pecs & scalenes biceps Body Location R mid to distal brachialis & biceps Mobilization Type Rolling Intensity/Depth Moderate Body Position Supine Comments FM extensors Body Location R brachioradialis & pronator teres & supinator Mobilization Type Cross-Friction,Rolling, Strumming Intensity/Depth Moderate Body Position Supine Joint Mobilizations ulna Comments R distraction FM in flex radius Comments distal PA FM proximal distraction & AP FM PT-OP-R Modalities Start: 08/26/22 15:05 Freq: Status: Active Protocol: Document 10/08/22 07:30 [facility] (Rec: 10/08/22 08:36 [facility] [id number]) Infrared Treatment Treatment lat epicondyle Duration (Minutes) 1 Body Position Sitting Program or Protocal chornoic tendon high PT-OP-T Assessment and Plan Start: 08/26/22 15:05 Freq: Status: Active Protocol: Document 10/29/22 16:02 [facility] (Rec: 10/29/22 20:22 [facility] [id number]) Physical Therapy Assessment Goals coach professional athletes strength Production Quality Analyst Goal (LTG) Pt will have equal coach professional athletes strength in RUE when compared to LUE. 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 LTG Duration 11/19/22 strength Short Term Goal (STG) Pt will be indep w/HEP STG Duration achieved-advancing as able Halfway Goal (LTG) Ptw ill score 4/5 on EFT and 5 /5 on all MMT of elbow and wrist to show improved UE strength to improve ability to lift and use UE. 10/15-MMT 5/5 now LTG Duration 11/19 Assessment Summary Assessment Pt had only pian when resisted in full elbow flex and supination which was made worse in abd & ER resisting towards IR. He improved after manual to have much less discomfort w/ this Physical Therapy Plan Frequency and Duration Frequency of Treatment 1-2x/wk Duration of treatment (weeks) 12 Plan of Care Start Date 08/27/22 Plan of Care End Date 11/19/22 Next Visit Focus/Plan Next Note Type Treatment Note Next Visit Plan cont to wokr on med n tension
--- NOTE | 2022-11-05 18:45 | PT.OTN ---
Current Diagnoses Abnormal posture (11/05/22) Weakness (11/05/22) Strain of unspecified muscles, fascia and tendons at forearm level, right arm, initial encounter (11/05/22) Physical Therapy Treatment Note PT-OP-A Visit Information Start: 08/26/22 15:05 Freq: Status: Active Protocol: Document 11/05/22 18:41 [facility] (Rec: 11/05/22 18:45 [facility] [id number]) Out-Patient Physical Therapy Visit Information Visit Information Visit Type Treatment Note Visit Start Time 16:04 Visit Stop Time 16:45 Total Visit Minutes 41 Visit Number 9 Number of AUTO BODY DETAILER Visits 0 PT-OP-B Current Condition Start: 08/26/22 15:05 Freq: Status: Active Protocol: Document 08/27/22 11:18 [facility] (Rec: 08/27/22 12:10 [facility] [id number]) Current Condition History of Current Condition Onset Date March Current Complaints R elbow to forearm and into brachium History of Current Condition Pt was weed eating with his new battery operated one that doesn't have a strap and he powered through it and did about 3 hours of work. He could feel it during, but powered through it. This happened in march but it hasn't gotten better. He still works out still but just feels it. He moved some furniture a couplew [place] ago and he isn't sure if it was weak or he held back d/t the pain. Pt is R hand dominant. Denies neck or shoulder pain. For work, he on the computer,b ut he doesn't notice that inc it. Golfing didn't bother it. 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 Hasn't had to do any heavy work lately though PT-OP-F Manual Assessment Start: 08/26/22 15:05 Freq: Status: Active Protocol: Document 08/27/22 11:18 [facility] (Rec: 08/27/22 12:10 [facility] [id number]) Manual Assessments Soft Tissue Assessment Soft Tissue Mobility Assessment tightness in extensor tendsons and biceps PT-OP-J Posture/Palpation/Skin Start: 08/26/22 15:05 Freq: Status: Active Protocol: Document 08/27/22 11:18 [facility] (Rec: 08/27/22 12:10 [facility] [id number]) Posture Evaluation [facility] Postural Classification System Elbow Flexion Test 3 PT-OP-K Range of Motion Start: 08/26/22 15:05 Freq: Status: Active Protocol: Document 08/27/22 11:18 [facility] (Rec: 08/27/22 12:10 [facility] [id number]) Elbow/Forearm Range of Motion Elbow/Forearm Right Active Elbow Flexion (degrees) 149 Elbow Extension (degrees) 8 Pronation (degrees) 63 Supination (degrees) 84 Comments pain w/flex Left Active Elbow Flexion (degrees) 150 Elbow Extension (degrees) 0 Pronation (degrees) 69 Supination (degrees) 85 Wrist Goniometric Range of Motion Wrist Right Flexion Active (degrees) 80 Extension Active (degrees) 58 Ulnar Deviation Active (degrees) 40 Radial Deviation Active (degrees) 20 Left Flexion Active (degrees) 81 Extension Active (degrees) 45 Ulnar Deviation Passive (degrees) 36 Radial Deviation Active (degrees) 28 PT-OP-L Special Tests Start: 08/26/22 15:05 Freq: Status: Active Protocol: Document 08/27/22 11:18 [facility] (Rec: 08/27/22 12:10 [facility] [id number]) Special Tests Elbow Special Tests Mill's test Test Results neg Neural Special Tests- Upper Body Radial Nerve Tension Test Results neg Ulnar Nerve Tension Test Results neg Median Nerve Tension Test Results neg PT-OP-M Strength Start: 08/26/22 15:05 Freq: Status: Active Protocol: Document 10/15/22 16:58 [facility] (Rec: 10/15/22 18:12 [facility] [id number]) Shoulder Strength Shoulder Manual Muscle Testing Right Flexion 5 Normal Extension 5 Normal Abduction (C5) 5 Normal External Rotation 5 Normal Internal Rotation 5 Normal Elbow/Forearm Strength Elbow and Forearm Manual Muscle Testing Right Flexion (C6) 5 Normal Extension (C7) 5 Normal Pronation 5 Normal Supination 5 Normal Left Flexion (C6) 5 Normal Extension (C7) 5 Normal Pronation 5 Normal Supination 5 Normal Comments flex in pronation:5 Wrist Strength Wrist Manual Muscle Testing Right Flexion (C7) 5 Normal Extension (C6) 4+ Good+ Ulnar Deviation 5 Normal Radial Deviation 5 Normal Left Flexion (C7) 5 Normal Extension (C6) 5 Normal Ulnar Deviation 5 Normal Radial Deviation 5 Normal Hand Repair Servicer/Pinch Strength Hand Strength Right Comments average 86 lb PT-OP-Q Treatments Start: 08/26/22 15:05 Freq: Status: Active Protocol: Document 11/05/22 18:41 [facility] (Rec: 11/05/22 18:45 [facility] [id number]) Therapeutic Exercises Supine Exercises foam roll Supine Exercise Name B flex, Habd & abd // on roll & perp ext over Side bilateral Reps/Minutes 4 min Standing Exercises wall posture Standing Exercise Name w/ext then w/90/90 Habd Side bilateral Reps/Minutes 3 min rows Standing Exercise Name rows & shoulder ext Side bilateral Equipment Used L4 Reps/Minutes 10 ea Manual Therapy Treatment Soft Tissue Mobilization median n path Mobilization Type Rolling,Strumming Comments pecs & scalenes extensors Body Location R brachioradialis & pronator teres & supinator Mobilization Type Cross-Friction,Rolling, Strumming Intensity/Depth Moderate Body Position Supine Joint Mobilizations GH Joint R post FM AC Joint R gapping FM ulna Comments R distraction FM in flex radius Comments proximal distraction & AP FM PT-OP-R Modalities Start: 08/26/22 15:05 Freq: Status: Active Protocol: Document 10/08/22 07:30 [facility] (Rec: 10/08/22 08:36 [id number] Infrared Treatment Treatment lat epicondyle Duration (Minutes) 1 Body Position Sitting Program or Protocal chornoic tendon high PT-OP-T Assessment and Plan Start: 08/26/22 15:05 Freq: Status: Active Protocol: Document 11/05/22 18:41 [facility] (Rec: 11/05/22 18:45 [facility] [id number]) Physical Therapy Assessment Goals installer molding and trim strength Platinumsmith Goal (LTG) Pt will have equal installer molding and trim strength in RUE when compared to LUE. 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 LTG Duration 11/19/22 strength Short Term Goal (STG) Pt will be indep w/HEP STG Duration achieved-advancing as able Senior Care Goal (LTG) Ptw ill score 4/5 on EFT and 5 /5 on all MMT of elbow and wrist to show improved UE strength to improve ability to lift and use UE. 10/15-MMT 5/5 now LTG Duration 11/19 Assessment Summary Assessment Pt had no pain w/elbow flex in full flex when placed in any position of shoulder flex but did when at side and full elbow flex done and elbow in pronation, supnation and neutral. Discomfort sginfiicantly lessened after manual though. Physical Therapy Plan Frequency and Duration Frequency of Treatment 1-2x/wk Duration of treatment (weeks) 12 Plan of Care Start Date 08/27/22 Plan of Care End Date 11/19/22 Next Visit Focus/Plan Next Note Type Treatment Note Next Visit Plan cont to jose on med n tension & post glide of humerus for better shoulder set
--- NOTE | 2022-11-12 16:47 | PT.OTN ---
Current Diagnoses Abnormal posture (11/12/22) Weakness (11/12/22) Strain of unspecified muscles, fascia and tendons at forearm level, right arm, initial encounter (11/12/22) Physical Therapy Treatment Note PT-OP-A Visit Information Start: 08/26/22 15:05 Freq: Status: Active Protocol: Document 11/12/22 16:04 [facility] (Rec: 11/12/22 16:47 [facility] [id number]) Out-Patient Physical Therapy Visit Information Visit Information Visit Type Treatment Note Visit Start Time 16:03 Visit Stop Time 16:42 Total Visit Minutes 39 Visit Number 10 Number of SCIENTIFIC SOFTWARE ENGINEER Visits 0 PT-OP-B Current Condition Start: 08/26/22 15:05 Freq: Status: Active Protocol: Document 08/27/22 11:18 [facility] (Rec: 08/27/22 12:10 [facility] [id number]) Current Condition History of Current Condition Onset Date March Current Complaints R elbow to forearm and into brachium History of Current Condition Pt was weed eating with his new battery operated one that doesn't have a strap and he powered through it and did about 3 hours of work. He could feel it during, but powered through it. This happened in march but it hasn't gotten better. He still works out still but just feels it. He moved some furniture a couplew [place] ago and he isn't sure if it was weak or he held back d/t the pain. Pt is R hand dominant. Denies neck or shoulder pain. For work, he on the computer,b ut he doesn't notice that inc it. Golfing didn't bother it. Prior Treatments and Tests none Treatment Goals Patient/Caregiver Goals prevent further damage; be able to sisal picker heavy things like his vacuum PT-OP-C Subjective Start: 08/26/22 15:05 Freq: Status: Active Protocol: Document 11/12/22 16:04 [facility] (Rec: 11/12/22 16:47 [facility] [id number]) OP-PT Subjective Patient Comments Patient Comments pt reports he can mildly feel it when he lifts something heavy like vacuum. PT-OP-F Manual Assessment Start: 08/26/22 15:05 Freq: Status: Active Protocol: Document 08/27/22 11:18 [facility] (Rec: 08/27/22 12:10 [facility] [id number]) Manual Assessments Soft Tissue Assessment Soft Tissue Mobility Assessment tightness in extensor tendsons and biceps PT-OP-J Posture/Palpation/Skin Start: 08/26/22 15:05 Freq: Status: Active Protocol: Document 11/12/22 16:04 [facility] (Rec: 11/12/22 16:47 [facility] [id number]) Posture Evaluation [facility] Postural Classification System Elbow Flexion Test 4 PT-OP-K Range of Motion Start: 08/26/22 15:05 Freq: Status: Active Protocol: Document 08/27/22 11:18 [facility] (Rec: 08/27/22 12:10 [facility] [id number]) Elbow/Forearm Range of Motion Elbow/Forearm Right Active Elbow Flexion (degrees) 149 Elbow Extension (degrees) 8 Pronation (degrees) 63 Supination (degrees) 84 Comments pain w/flex Left Active Elbow Flexion (degrees) 150 Elbow Extension (degrees) 0 Pronation (degrees) 69 Supination (degrees) 85 Wrist Goniometric Range of Motion Wrist Right Flexion Active (degrees) 80 Extension Active (degrees) 58 Ulnar Deviation Active (degrees) 40 Radial Deviation Active (degrees) 20 Left Flexion Active (degrees) 81 Extension Active (degrees) 45 Ulnar Deviation Passive (degrees) 36 Radial Deviation Active (degrees) 28 PT-OP-L Special Tests Start: 08/26/22 15:05 Freq: Status: Active Protocol: Document 08/27/22 11:18 [facility] (Rec: 08/27/22 12:10 [facility] [id number]) Special Tests Elbow Special Tests Mill's test Test Results neg Neural Special Tests- Upper Body Radial Nerve Tension Test Results neg Ulnar Nerve Tension Test Results neg Median Nerve Tension Test Results neg PT-OP-M Strength Start: 08/26/22 15:05 Freq: Status: Active Protocol: Document 11/12/22 16:04 [facility] (Rec: 11/12/22 16:47 [facility] [id number]) Elbow/Forearm Strength Elbow and Forearm Manual Muscle Testing Right Flexion (C6) 5 Normal Extension (C7) 5 Normal Pronation 5 Normal Supination 5 Normal Left Flexion (C6) 5 Normal Extension (C7) 5 Normal Pronation 5 Normal Supination 5 Normal Comments flex in pronation:5 Wrist Strength Wrist Manual Muscle Testing Right Flexion (C7) 5 Normal Extension (C6) 5 Normal Ulnar Deviation 5 Normal Radial Deviation 5 Normal Left Flexion (C7) 5 Normal Extension (C6) 5 Normal Ulnar Deviation 5 Normal Radial Deviation 5 Normal Hand Railway Switch Operator/Pinch Strength Hand Strength Right Comments 98 lb Left Comments 98, 100, 101 lb PT-OP-Q Treatments Start: 08/26/22 15:05 Freq: Status: Active Protocol: Document 11/12/22 16:04 [facility] (Rec: 11/12/22 16:47 [facility] [id number]) Manual Therapy Treatment Soft Tissue Mobilization biceps Body Location R distal brachialis & biceps Mobilization Type Rolling Intensity/Depth Moderate Body Position Supine Comments FM extensors Body Location R brachioradialis & pronator teres & supinator Mobilization Type Cross-Friction,Rolling, Strumming Intensity/Depth Moderate Body Position Supine Joint Mobilizations humerus Joint distal R Comments distraciton FM; AP FM ulna Comments R distraction FM in flex radius Comments proximal distraction & PA FM PT-OP-R Modalities Start: 08/26/22 15:05 Freq: Status: Active Protocol: Document 10/08/22 07:30 [facility] (Rec: 10/08/22 08:36 [facility] [id number]) Infrared Treatment Treatment lat epicondyle Duration (Minutes) 1 Body Position Sitting Program or Protocal chornoic tendon high PT-OP-T Assessment and Plan Start: 08/26/22 15:05 Freq: Status: Active Protocol: Document 11/12/22 16:04 [facility] (Rec[facility] 11[facility]12/22 [id number] Physical Therapy Assessment Goals policewoman strength Data Quality Consultant Goal (LTG) Pt will have equal policewoman strength in RUE when compared to LUE. LTG Duration achieved 11/12 activities Jail Goal (LTG) Pt will be able to sisal picker heavy objects like his vacuum w/RUE w/o inc pain noted. 11/12-slightly notices w/vacuum LTG Duration 02/04 strength Short Term Goal (STG) Pt will be indep w/HEP STG Duration achieved-advancing as able Data Quality Consultant Goal (LTG) Ptw ill score 4/5 on EFT and 5 /5 on all MMT of elbow and wrist to show improved UE strength to improve ability to lift and use UE. 10/15-MMT 5/5 now LTG Duration achieved 11/12 Assessment Summary Assessment Pt has progressed well and is showing more overall RUE strength at this time. He had pain today only when in full flex w/pronation & w/neutral forearm positioning but not w/ supinated positioning. Improved to no pain in pronated position and only mild discomfort in neutral positioning. Pt to cont PT as needed. Plans to cont HEP on his own and if needed, return to formal sessions. Physical Therapy Plan Frequency and Duration Frequency of Treatment as needed Duration of treatment (weeks) 12 Plan of Care Start Date 11/12/22 Plan of Care End Date 02/04/23 Therapeutic Interventions Therapeutic Interventions Home Exercise Program,Joint Mobilizations,Manual Therapy, Neuromuscular Re-education, Orthotic/Prosthetic Management ,Patient/Caregiver Education, Self-Care/Home Management,Soft Tissue Mobilization,Taping, Therapeutic Activities, Therapeutic Exercises Modalities Cold Pack/Ice Massage,Electric Stimulation,Hot Packs, Infrared Therapy,Iontophoresis ,Ultrasound Next Visit Focus/Plan Next Note Type Treatment Note Next Visit Plan assess where pt is
--- NOTE | 2022-11-12 16:47 | PT.OPPOC ---
Physical, Occupational & Speech Therapy At [facility] Current Diagnoses Abnormal posture (11/12/22) Weakness (11/12/22) Strain of unspecified muscles, fascia and tendons at forearm level, right arm, initial encounter (11/12/22) Visit Care Team Role Provider Type Ubaldo Cuevas MD Attending Provider Physician Family Provider Primary Care Provider Referring Provider Specialty: Internal Medicine Address: [address] [place] [address], [address], [address] Email: [email or web address] Plan Of Care PT-OP-T Assessment and Plan Start: 08/26/22 15:05 Freq: Status: Active Protocol: Document 11/12/22 16:04 [facility] (Rec: 11/12/22 16:47 [facility] [id number]) Physical Therapy Assessment Goals investor relations specialist strength Industrial Engineering Technologist Goal (LTG) Pt will have equal investor relations specialist strength in RUE when compared to LUE. LTG Duration achieved 11/12 activities Halfway Goal (LTG) Pt will be able to pickle cutter heavy objects like his vacuum w/RUE w/o inc pain noted. 11/12-slightly notices w/vacuum LTG Duration 02/04 strength Short Term Goal (STG) Pt will be indep w/HEP STG Duration achieved-advancing as able Halfway Goal (LTG) Ptw ill score 4/5 on EFT and 5 /5 on all MMT of elbow and wrist to show improved UE strength to improve ability to lift and use UE. 10/15-MMT 5/5 now LTG Duration achieved 11/12 Assessment Summary Assessment Pt has progressed well and is showing more overall RUE strength at this time. He had pain today only when in full flex w/pronation & w/neutral forearm positioning but not w/ supinated positioning. Improved to no pain in pronated position and only mild discomfort in neutral positioning. Pt to cont PT as needed. Plans to cont HEP on his own and if needed, return to formal sessions. Physical Therapy Plan Frequency and Duration Frequency of Treatment as needed Duration of treatment (weeks) 12 Plan of Care Start Date 11/12/22 Plan of Care End Date 02/04/23 Therapeutic Interventions Therapeutic Interventions Home Exercise Program,Joint Mobilizations,Manual Therapy, Neuromuscular Re-education, Orthotic/Prosthetic Management ,Patient/Caregiver Education, Self-Care/Home Management,Soft Tissue Mobilization,Taping, Therapeutic Activities, Therapeutic Exercises Modalities Cold Pack/Ice Massage,Electric Stimulation,Hot Packs, Infrared Therapy,Iontophoresis ,Ultrasound Next Visit Focus/Plan Next Note Type Treatment Note Next Visit Plan assess where pt is Plan of Care Dates Plan of Care Start Date 11/12/22 Plan of Care End Date 02/04/23 Electronically Signed by: Beth Agustin, PT 11/12/22 8610 If you are in agreement with this Plan of Care, please return a signed and dated copy. I have reviewed this Plan of Care and certify that the skilled therapy services above are required to meet the patient?s needs. Physician Signature Date Printed Name and Credentials Clinical Instructor Signature Printed Name and Credentials
--- NOTE | 2023-02-10 08:52 | PT.OPDS ---
Current Diagnoses Abnormal posture (11/12/22) Weakness (11/12/22) Strain of unspecified muscles, fascia and tendons at forearm level, right arm, initial encounter (11/12/22) Visit Care Team Role Provider Type Ubaldo Cuevas MD Attending Provider Physician Family Provider Primary Care Provider Referring Provider Specialty: Internal Medicine Address: [address] [place] [address], [address], [address] Email: [email or web address] Visit Number Visit Number 10 Discharge Summary PT-OP-B Current Condition Start: 08/26/22 15:05 Freq: Status: Active Protocol: Document 08/27/22 11:18 [facility] (Rec: 08/27/22 12:10 [facility] [id number]) Current Condition History of Current Condition Onset Date March Current Complaints R elbow to forearm and into brachium History of Current Condition Pt was weed eating with his new battery operated one that doesn't have a strap and he powered through it and did about 3 hours of work. He could feel it during, but powered through it. This happened in march but it hasn't gotten better. He still works out still but just feels it. He moved some furniture a couplew [place] ago and he isn't sure if it was weak or he held back d/t the pain. Pt is R hand dominant. Denies neck or shoulder pain. For work, he on the computer,b ut he doesn't notice that inc it. Golfing didn't bother it. 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 PT-OP-F Manual Assessment Start: 08/26/22 15:05 Freq: Status: Active Protocol: Document 08/27/22 11:18 [facility] (Rec: 08/27/22 12:10 [facility] [id number]) Manual Assessments Soft Tissue Assessment Soft Tissue Mobility Assessment tightness in extensor tendsons and biceps PT-OP-J Posture/Palpation/Skin Start: 08/26/22 15:05 Freq: Status: Active Protocol: Document 11/12/22 16:04 [facility] (Rec: 11/12/22 16:47 [facility] [id number]) Posture Evaluation [facility] Postural Classification System Elbow Flexion Test 4 PT-OP-K Range of Motion Start: 08/26/22 15:05 Freq: Status: Active Protocol: Document 08/27/22 11:18 [facility] (Rec: 08/27/22 12:10 [facility] [id number]) Elbow/Forearm Range of Motion Elbow/Forearm Right Active Elbow Flexion (degrees) 149 Elbow Extension (degrees) 8 Pronation (degrees) 63 Supination (degrees) 84 Comments pain w/flex Left Active Elbow Flexion (degrees) 150 Elbow Extension (degrees) 0 Pronation (degrees) 69 Supination (degrees) 85 Wrist Goniometric Range of Motion Wrist Right Flexion Active (degrees) 80 Extension Active (degrees) 58 Ulnar Deviation Active (degrees) 40 Radial Deviation Active (degrees) 20 Left Flexion Active (degrees) 81 Extension Active (degrees) 45 Ulnar Deviation Passive (degrees) 36 Radial Deviation Active (degrees) 28 PT-OP-L Special Tests Start: 08/26/22 15:05 Freq: Status: Active Protocol: Document 08/27/22 11:18 [facility] (Rec: 08/27/22 12:10 [facility] [id number]) Special Tests Elbow Special Tests Mill's test Test Results neg Neural Special Tests- Upper Body Radial Nerve Tension Test Results neg Ulnar Nerve Tension Test Results neg Median Nerve Tension Test Results neg PT-OP-M Strength Start: 08/26/22 15:05 Freq: Status: Active Protocol: Document 11/12/22 16:04 [facility] (Rec: 11/12/22 16:47 [facility] [id number]) Elbow/Forearm Strength Elbow and Forearm Manual Muscle Testing Right Flexion (C6) 5 Normal Extension (C7) 5 Normal Pronation 5 Normal Supination 5 Normal Left Flexion (C6) 5 Normal Extension (C7) 5 Normal Pronation 5 Normal Supination 5 Normal Comments flex in pronation:5 Wrist Strength Wrist Manual Muscle Testing Right Flexion (C7) 5 Normal Extension (C6) 5 Normal Ulnar Deviation 5 Normal Radial Deviation 5 Normal Left Flexion (C7) 5 Normal Extension (C6) 5 Normal Ulnar Deviation 5 Normal Radial Deviation 5 Normal Hand Furnace Clerk/Pinch Strength Hand Strength Right Comments 98 lb Left Comments 98, 100, 101 lb PT-OP-T Assessment and Plan Start: 08/26/22 15:05 Freq: Status: Active Protocol: Document 02/10/23 08:51 [facility] (Rec: 02/10/23 08:52 [facility] [id number]) Physical Therapy Assessment Goals sporting goods sales associate strength Management Supervisor Goal (LTG) Pt will have equal sporting goods sales associate strength in RUE when compared to LUE. 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 11/12-slightly notices w/vacuum LTG Duration 02/04 strength Short Term Goal (STG) Pt will be indep w/HEP STG Duration achieved-advancing as able Management Supervisor Goal (LTG) Ptw ill score 4/5 on EFT and 5 /5 on all MMT of elbow and wrist to show improved UE strength to improve ability to lift and use UE. 10/15-MMT 5/5 now LTG Duration achieved 11/12 Assessment Summary Assessment Pt was doing well and reporting very minimal discomfort in elbow at last visit 11/12. Pt was to cont HEP and inc his activities around the house and if he had any difficulty call PT to schedule appt. Pt did not call for any further appt and POC is now . DC d/t no longer attending PT and goals met Physical Therapy Plan Discharge Physical Therapy Discharge Reasons Goals Met
== END 2023-02-10 15:05 | disposition home or self-care (01) ==
LOC: PHYS 16:00
PROVIDERS: Family Provider Student in an Organized Health Care Education/Training Program; PCP Student in an Organized Health Care Education/Training Program; Referring Provider Student in an Organized Health Care Education/Training Program; Visit Provider Student in an Organized Health Care Education/Training Program
DX: S56.911A Strain of unspecified muscles, fascia and tendons at forearm level, right arm, initial encounter (principal); R29.3 Abnormal posture; R53.1 Weakness
CPT/HCPCS: 97110; 97140; 97161; 97750

== ENCOUNTER → 2023-05-28 10:01 | Outpatient (CLI) | payer MEDICARE, SELFPAY ==
[2023-05-28 11:58] LABS: Alanine Aminotransferase 45 IU/L (<50); Albumin Globulin Ratio 1.3 (1.0-2.8); Alkaline Phosphatase 51 U/L (38-126); Aspartate Aminotransferase 34 IU/L (17-59); BUN Creatinine Ratio 18.7 (6-22); Blood Urea Nitrogen 14 mg/dL (9-20); Calcium 8.7 mg/dL (8.4-10.2); Carbon Dioxide 30 mmol/L (22-32); Chloride 99 mmol/L (98-107); Cholesterol 155 mg/dL (140-199); Estimated Glomerular Filt Rate > 60 mL/min (>60); Globulin 3.1 g/dL (1.7-4.1); Glucose 90 mg/dL (80-110); HDL Cholesterol 51 mg/dL (40-60); HEMOLYSIS < 15 (0-50); LDL Cholesterol Calculated 94 mg/dL (<100); Potassium 3.9 mmol/L (3.4-5.1); Sodium 137 mmol/L (137-145); Total Protein 7.1 g/dL (6.3-8.2); Triglycerides 50 mg/dL (35-150)
[2023-06-06 16:23] LABS: 1,25-Dihydroxy, Vitamin D-2 <10 pg/mL (.)
== END ==
PROVIDERS: Family Provider Student in an Organized Health Care Education/Training Program; PCP Internal Medicine; Referring Provider Internal Medicine; Visit Provider Internal Medicine
DX: E78.2 Mixed hyperlipidemia (principal); Z12.5 Encounter for screening for malignant neoplasm of prostate; E55.9 Vitamin D deficiency, unspecified
CPT/HCPCS: 36415; 80053; 80061; 82652; G0103

== ENCOUNTER → 2024-08-04 09:49 | Outpatient (CLI) | payer MEDICARE, SELFPAY ==
[2024-08-04 10:28] LABS: HEMOLYSIS < 15 (0-50)
[2024-08-04 10:35] LABS: Alanine Aminotransferase 40 IU/L (<50); Albumin 4.2 g/dL (3.5-5.0); Albumin Globulin Ratio 1.6 (1.0-2.8); Alkaline Phosphatase 55 U/L (38-126); Aspartate Aminotransferase 32 IU/L (17-59); BUN Creatinine Ratio 15.7 (6-22); Bilirubin Total 1.2 mg/dL (0.2-1.3); Blood Urea Nitrogen 11 mg/dL (9-20); Calcium 9.3 mg/dL (8.4-10.2); Carbon Dioxide 28 mmol/L (22-32); Chloride 100 mmol/L (98-107); Cholesterol 156 mg/dL (140-199); Estimated Glomerular Filt Rate > 60 mL/min (>60); Globulin 2.7 g/dL (1.7-4.1); Glucose 98 mg/dL (80-110); HDL Cholesterol 52 mg/dL (40-60); LDL Cholesterol Calculated 93 mg/dL (<100); Potassium 4.3 mmol/L (3.4-5.1); Sodium 134 mmol/L (137-145); Total Protein 6.9 g/dL (6.3-8.2); Triglycerides 55 mg/dL (35-150)
[2024-08-04 10:50] LABS: Vitamin D 25 Hydroxy (D3) 54.2 ng/mL (30.0-100.0)
[2024-08-04 11:04] LABS: Prostate Specific Antigen Scrn 1.18 ng/mL (0.1-4.0)
== END ==
PROVIDERS: Family Provider Student in an Organized Health Care Education/Training Program; PCP Internal Medicine; Referring Provider Internal Medicine; Visit Provider Internal Medicine
DX: E78.2 Mixed hyperlipidemia (principal); Z12.5 Encounter for screening for malignant neoplasm of prostate; E55.9 Vitamin D deficiency, unspecified
CPT/HCPCS: 36415; 80053; 80061; 82306; G0103

== ENCOUNTER 2024-09-13 07:34 | Day surgery (SDC) | payer MEDICARE, SELFPAY ==
[2024-09-13 08:21] VITALS: BP 123/74; PULSE 72; RESP 16; TEMP 36.2; O2SAT 99
--- NOTE | 2024-09-13 08:54 | PM.HP.1 ---
History of Present Illness History of Present Illness Date Patient Seen: 09/13/24 Time Patient Seen: 08:55 Chief complaint: Screening Colonoscopy Narrative: 69-year-old man family history of colon cancer in mother and personal history of colonic polyps here for screening colonoscopy. Last colonoscopy 2018. No abdominal concerns today. [facility] Medical History H/O adenomatous polyp of colon Vitamin D insufficiency Actinic keratosis (~2011) Chicken pox (~1959) Hyperlipidemia (~2007) Mixed hyperlipidemia (07/20/15) Basal cell carcinoma (BCC) of face (07/20/15) Surgical History Anesthesia History of tonsillectomy (~1964) Status post appendectomy (~1977) Family History Brother Age: 74 Heart disease Stroke Mother Age: 104 Cancer Heart disease Sister Age: 81 Heart disease Sister Age: 80 COPD (chronic obstructive pulmonary disease) Father Heart disease Stroke Social History household members: none Smoking Status: Never smoker alcohol intake: current Meds Home Medications and Allergies Home Medications Medication Instructions Recorded Confirmed Type ASPIRIN (Aspirin EC) 81 mg PO Q DAY ##0 02/26/11 09/13/24 History atorvastatin 40 mg tablet 40 mg PO BEDTIME #90 tabs 07/26/24 09/13/24 Rx Allergies Allergy/AdvReac Type Severity Reaction Status Date / Time Sulfa (Sulfonamide Allergy Unknown Rash Verified 09/13/24 08:13 Antibiotics) [SULFA (SULFONAMIDE ANTIBIOTICS)] Exam Vital Signs (past 8 hours): - 09/13/24 08:21 Temperature 97.2 F L Pulse Rate 72 Respiratory Rate 16 Blood Pressure 123/74 Pulse Oximetry 99 Oxygen Delivery Method Room Air Oxygen Delivery Method Room Air Narrative Exam Narrative: General adult man alert oriented no acute distress Chest nonlabored respiration Extremities warm well perfused Assessment & Plan Assessment and plan (1) Family history of colon cancer: Status: Acute (2) H/O adenomatous polyp of colon: Problem details: 2018 Status: Inactive Assessment & Plan narrative: The patient requires colorectal screening and colonoscopy is recommended. Technical details were discussed. Risks, benefits, alternatives explained. Risks including but not limited to myocardial infarction, aspiration, bleeding, pain, missed lesion, incomplete examination, need for further radiographic studies, intestinal injury, and need for major abdominal surgery were discussed. All questions were answered to their satisfaction, and they are in agreement with this plan. Time-Based Coding :: [TOTAL MINUTES] spent with patient and on the chart (including review of chart, obtaining history, exam, reviewing outside data, placing orders, documenting exam and treatment plan, and counseling patient) on [DATE].
[2024-09-13 09:23] VITALS: BP 94/68; PULSE 66; RESP 17; TEMP 36.6; O2SAT 97
[2024-09-13 09:28] VITALS: BP 100/71; PULSE 60; RESP 13; TEMP 36.7; O2SAT 97
--- NOTE | 2024-09-13 09:28 | P.OP.COLON_ITS ---
Operative Date/Time/Diagnoses Date of procedure: 09/13/24 Time of procedure: 09:29 Pre-op diagnosis: Family history of colon cancer Personal history of colonic polyps Procedure & Clinicians Study performed: Screening colonoscopy Same procedure as scheduled: Yes Indications: Family history of colon cancer Personal history of colonic polyps Surgeon: Kedar Pastor Procedure Notes Procedure in detail: The history and physical was performed/updated and the patient is ASA class is 2. The procedure was discussed in detail with the patient. Potential risks complications including infection, bleeding, missed diagnosis, perforation, need for surgery, and were explained. Their questions were answered and informed consent was obtained. Patient was brought to the procedure room and placed standard monitoring equipment. The patient's vital signs were monitored continuously throughout the entire procedure. Prior to starting time-out was performed. The patient was placed in the left lateral recumbent position. Procedural sedation was administered by anesthesia. Examination began with a thorough inspection of the perianal area there was no evidence of fissures, fistulae, external hemorrhoids or cutaneous malignancy. The colonoscopy scope was then placed into the anal canal and was advanced to the cecum, which was identified by the ileocecal valve, the appendiceal orifice and the confluence of the taenia. The scope was then slowly withdrawn examining colon thoroughly in all directions, irrigating it of any residual stool. The scope was retroflexed within the rectum The patient tolerated the procedure well. They will be discharged once criteria are met. The prep was of good/excellent quality. The withdrawl time was 7 minutes. FINDINGS * Unremarkable colonoscopy. Normal healthy colonic mucosa without mass or polyps. Specimen(s): none sent Impression: Normal colonoscopy Post-procedure Recommendations: Colonoscopy in 5 years (For family history) Disposition: same day surgery
[2024-09-13 09:40] VITALS: BP 105/71; PULSE 70; RESP 12; TEMP 36.6; O2SAT 99
== END 2024-09-13 09:56 | disposition home or self-care (01) ==
PROVIDERS: Family Provider Student in an Organized Health Care Education/Training Program; PCP Internal Medicine; Referring Provider Surgery; Visit Provider Surgery
PROC: 0DJD8ZZ Inspection of Lower Intestinal Tract, Via Natural or Artificial Opening Endoscopic (ICD-10-PCS; CPT 45378; principal; 2024-09-13 09:00)
DX: Z12.11 Encounter for screening for malignant neoplasm of colon (principal); Z80.0 Family history of malignant neoplasm of digestive organs; Z86.0100 Personal history of colon polyps, unspecified
CPT/HCPCS: G0105; J2704

== ENCOUNTER → 2025-08-11 08:38 | Outpatient (CLI) | payer MEDICARE, OTHER, SELFPAY ==
[2025-08-11 09:39] LABS: Add Manual Diff / Slide Review NO; Hematocrit 38.1 % (41-53); Hemoglobin 12.9 g/dL (13.5-17.5); Lymphocytes Absolute Auto 700 /uL (1100-4500); Mean Corpuscular HGB Conc 33.8 % (30-36); Mean Corpuscular Hemoglobin 33.2 PG (26-34); Mean Corpuscular Volume 98.3 fL (80-100); Platelet Count 143 X10^3/uL (150-400)
[2025-08-11 09:59] LABS: HEMOLYSIS < 15 (0-50); Iron 91 ug/dL (49-181)
[2025-08-11 10:02] LABS: Alanine Aminotransferase 33 IU/L (<50); Albumin 4.0 g/dL (3.5-5.0); Albumin Globulin Ratio 1.4 (1.0-2.8); Alkaline Phosphatase 51 U/L (38-126); Blood Urea Nitrogen 14 mg/dL (9-20); Calcium 8.9 mg/dL (8.4-10.2); Carbon Dioxide 27 mmol/L (22-32); Chloride 102 mmol/L (98-107); Cholesterol 150 mg/dL (140-199); Estimated Glomerular Filt Rate > 60 mL/min (>60); Globulin 2.8 g/dL (1.7-4.1); Glucose 93 mg/dL (70-99); HDL Cholesterol 54 mg/dL (40-60); HEMOLYSIS < 15 (0-50); Potassium 4.2 mmol/L (3.4-5.1); Sodium 134 mmol/L (137-145); Total Protein 6.8 g/dL (6.3-8.2); Triglycerides 50 mg/dL (35-150)
[2025-08-11 10:10] LABS: Percent Iron Saturation 30 % (20-50); Total Iron Binding Capacity 307 ug/dL (261-462); Transferrin 254 mg/dL (206-381)
[2025-08-11 10:12] LABS: Vitamin D 25 Hydroxy (D3) 52.0 ng/mL (30.0-100.0)
[2025-08-11 10:35] LABS: Prostate Specific Antigen 1.42 ng/mL (0.10-4.00)
[2025-08-11 11:13] LABS: Folate > 20.0 ng/mL (2.76-20.0); Vitamin B12 370 pg/mL (239-931)
== END ==
PROVIDERS: PCP Internal Medicine; Referring Provider Internal Medicine; Visit Provider Internal Medicine
DX: E78.2 Mixed hyperlipidemia (principal); E55.9 Vitamin D deficiency, unspecified; D64.9 Anemia, unspecified
CPT/HCPCS: 80053; 80061; 82306; 82607; 82746; 83540; 83550; 84153; 85025